=== PATIENT | female | born 1940 | race Caucasian/White ===

== ENCOUNTER → 2016-11-16 | Outpatient (REF) | payer OTHER ==
[2016-11-16 20:10] LABS: ALBUMIN/GLOBULIN RATIO 1.38 (1.00-1.93); BILIRUBIN,TOTAL 0.4 MG/DL (0.2-1.0); CALCIUM LEVEL 9.4 MG/DL (8.8-10.2); CREATININE FOR GFR 1.21 MG/DL (0.55-1.02); FREE T4 1.08 NG/DL (0.76-1.46); GLOMERULAR FILTRATION RATE 46.1 (>39); MAGNESIUM LEVEL 1.8 MG/DL (1.8-2.4); POTASSIUM SERUM 3.4 MEQ/L (3.5-5.1); TOTAL PROTEIN 6.9 GM/DL (6.4-8.2)
== END ==
LOC: M SFHCADAM 16:24
PROVIDERS: ATTEND Physician Assistant
DX: I10 Essential (primary) hypertension (principal); E03.9 Hypothyroidism, unspecified; E78.4 Other hyperlipidemia; Z79.899 Other long term (current) drug therapy
CPT/HCPCS: 80053; 80061; 82306; 83735; 84439; 84443; 93005; G0463

== ENCOUNTER → 2017-02-22 | Outpatient (REF) | payer OTHER ==
[2017-02-22 13:11] LABS: ANION GAP 9 MEQ/L (8-16); BLOOD UREA NITROGEN 15 MG/DL (7-18); CALCIUM LEVEL 9.7 MG/DL (8.8-10.2); CARBON DIOXIDE LEVEL 31 MEQ/L (21-32); CHLORIDE LEVEL 99 MEQ/L (98-107); CREATININE FOR GFR 0.89 MG/DL (0.55-1.02); GLOMERULAR FILTRATION RATE > 60.0 (>39); GLUCOSE, FASTING 95 MG/DL (83-110); POTASSIUM SERUM 3.2 MEQ/L (3.5-5.1); SODIUM LEVEL 139 MEQ/L (136-145)
== END ==
LOC: M SFHCADAM 08:56
PROVIDERS: ATTEND Physician Assistant
DX: I12.9 Hypertensive chronic kidney disease with stage 1 through stage 4 chronic kidney disease, or unspecified chronic kidney disease (principal); N18.2 Chronic kidney disease, stage 2 (mild)

== ENCOUNTER → 2017-05-30 | Outpatient (CLI) | payer OTHER ==
[~2017-05-30] MED LIST: CHLO25TA PO; K-TA10TA2 PO; SYNT75TA PO; VALI5TAB PO; VERAP80TA PO
--- NOTE | 2017-05-30 13:47 | REP ---
Clinical: Preoperative assessment. Technique: PA and lateral. Comparison: None. Findings: Cardiac silhouette is normal. Atherosclerotic changes to the thoracic aorta are identified. The airway is patent and midline. Lung connors demonstrate diffuse chronic-appearing interstitial changes. No obvious acute consolidation, effusion, or pneumothorax. Skeletal structures are intact. Impression: Chronic-appearing changes. No obvious acute cardiopulmonary process. Signed by Logan Leggett MD 05/30/2017 01:38 P
== END ==
LOC: M ADAMS 13:19
PROVIDERS: ATTEND Physician Assistant
DX: I70.0 Atherosclerosis of aorta (principal); R05 Cough
CPT/HCPCS: 71020; G0463

== ENCOUNTER 2017-06-07 06:20 | Day surgery (SDC) | payer OTHER ==
[~2017-06-07] VITALS: Ht 160 cm; Wt 68.5 kg
[~2017-06-07 06:20] MED LIST changes: +ACETAMINOPHEN 325 MG TAB PO PRN
[2017-06-07] MEDS ORDERED: LIDOCAINE 1% MDV 20ML VIAL SQ PRN (06:30)
[2017-06-07] MEDS ORDERED: SLF 3 ML SYR IV PRN (06:30)
[2017-06-07] MEDS ORDERED: LIDOCAINE 3.5 % 1ML OPHTH TOPICAL GEL OU ONE (07:00)
[2017-06-07] MEDS ORDERED: PHENYLEPHRINE 2.5% OPHTH SOL 2ML OD ONE (07:00)
[2017-06-07] MEDS ORDERED: CYCLOPENTOLATE 2% OPHTH SOLN 2ML BTL OD ONE (07:00)
[2017-06-07] MEDS ORDERED: TROPICAMIDE 1% OPHTH SOLN 2ML OD ONE (07:00)
[2017-06-07] MEDS ORDERED: OFLOXACIN 0.3 % (OCUFLOX) OPTH SOL 5ML OD ONE (07:00)
[2017-06-07] MEDS ORDERED: PROPARACAINE 0.5% OPHTH SOL 15ML OD PRN (07:01)
[2017-06-07] MEDS ORDERED: POVIDONE-IODINE 5% OPHTH PREP SOL 30ML As Ordered ONE (07:10)
[2017-06-07] MEDS ORDERED: ACETYLCHOLINE OPHTH SOLN 1% 2ML (MIOCHOL-E) As Ordered ONE (07:10)
[2017-06-07] MEDS ORDERED: LIDOCAINE 1% SDV 5 ML VIAL As Ordered ONE (07:11)
[2017-06-07] MEDS ORDERED: HEALON DUET (HEALON 10MG/ML 0.55ML & HEALON ENDOCOAT 30MG/ML 0.85ML) As Ordered ONE (07:11)
[2017-06-07] MEDS ORDERED: CEFUROXIME 1MG/0.1ML INTRACAMERAL INJ As Ordered ONE (07:11)
[2017-06-07] MEDS ORDERED: BALANCED SALT IRRIGATION SOLUTION 500ML BAG (FOR OR EYE MACHINE) As Ordered ONE (07:13)
[2017-06-07] MEDS ORDERED: MIDAZOLAM INJ 2 MG/2 ML VIAL (J2250) As Ordered ONE (08:34)
[2017-06-07] MEDS ORDERED: fentaNYL 100 MCG/2 ML INJECTION (J3010) As Ordered ONE (08:34)
[2017-06-07] MEDS ORDERED: TRIMETHOBENZAMIDE 300 MG CAP PO PRN (09:00)
[2017-06-07] MEDS ORDERED: KETOROLAC 0.5% OPHTH SOLN OD ONE (09:00)
[2017-06-07 09:30] VITALS: BP 142/62
--- NOTE | 2017-06-07 10:36 | RO ---
DATE OF PROCEDURE: 06/07/2017 PREPROCEDURE DIAGNOSIS: Age related nuclear cataract right eye. POSTPROCEDURE DIAGNOSIS: Age related nuclear cataract right eye. PROCEDURE: Phacoemulsification and posterior chamber intraocular lens implantation, right eye. The lens used was U00T0 19.5 diopter. SURGEON: Elis Meek MD [facility] CHAPLAIN: ANESTHESIA: Topical with sedation. DESCRIPTION OF PROCEDURE: The patient was prepped and draped in the usual fashion. A lid speculum was placed between the lids. The eye was fixated. A stab incision was made to the anterior chamber, and 1% non-preserved lidocaine was instilled. Then, viscoelastic was instilled. The eye was re-fixated. A 2.75 mm sapphire keratome was used to make a clear corneal temporal limbal incision. Capsulorrhexis was begun with a 30-gauge bent needle and then carried out in a circular fashion with capsulorrhexis forceps. The lens was hydrodissected, and then the phacoemulsification unit was used to make a groove in the nucleus in two meridians. The nucleus was then cracked into four quadrants. Each quadrant was removed with the phacoemulsification unit. Any remaining cortex was removed with the irrigation and aspiration (I and A) unit. Capsular bag was refilled with viscoelastic. A posterior chamber intraocular lens was placed in the capsular bag without difficulty. Any remaining viscoelastic was removed with the I and A unit. The wound was hydrated, and Miochol and cefuroxime were instilled into the anterior chamber. The patient tolerated the procedure well and went to the recovery room in stable condition.
[2017-06-07] MEDS ORDERED: SLF 3 ML SYR IV SCH (14:00)
== END 2017-06-07 09:40 | disposition home or self-care (01) ==
LOC: M SDC 06:20
PROVIDERS: ATTEND Ophthalmology
DX: H25.11 Age-related nuclear cataract, right eye (principal); Z88.2 Allergy status to sulfonamides; I10 Essential (primary) hypertension; E03.9 Hypothyroidism, unspecified; G25.81 Restless legs syndrome; Z88.8 Allergy status to other drugs, medicaments and biological substances
CPT/HCPCS: 66984; J2250; J3010; V2632

== ENCOUNTER → 2017-06-28 | Day surgery (SDC) | payer OTHER ==
[~2017-06-28] VITALS: Ht 162.6 cm; Wt 68.9 kg
[~2017-06-28] MED LIST changes: +ACETYLCHOLINE OPHTH SOLN 1% 2ML (MIOCHOL-E) As Ordered ONE; +BALANCED SALT IRRIGATION SOLUTION 500ML BAG (FOR OR EYE MACHINE) As Ordered ONE; +CEFUROXIME 1MG/0.1ML INTRACAMERAL INJ As Ordered ONE; +CYCLOPENTOLATE 2% OPHTH SOLN 2ML BTL OS ONE; +HEALON DUET (HEALON 10MG/ML 0.55ML & HEALON ENDOCOAT 30MG/ML 0.85ML) As Ordered ONE; +KETOROLAC 0.5% OPHTH SOLN OS ONE; +LIDOCAINE 1% SDV 5 ML VIAL As Ordered ONE; +LIDOCAINE 1% SDV 5 ML VIAL SQ ONE; +LIDOCAINE 3.5 % 1ML OPHTH TOPICAL GEL OU ONE; +MIDAZOLAM INJ 2 MG/2 ML VIAL (J2250) As Ordered ONE; +OFLOXACIN 0.3 % (OCUFLOX) OPTH SOL 5ML OS ONE; +PHENYLEPHRINE 2.5% OPHTH SOL 2ML OS ONE; +PHENYLEPHRINE HCL 10 % OPHTH. SOL 5ML OS PRN; +POVIDONE-IODINE 5% OPHTH PREP SOL 30ML As Ordered ONE; +PROPARACAINE 0.5% OPHTH SOL 15ML OS PRN; +TRIMETHOBENZAMIDE 300 MG CAP PO PRN; +TROPICAMIDE 1% OPHTH SOLN 2ML OS ONE; +fentaNYL 100 MCG/2 ML INJECTION (J3010) As Ordered ONE
[2017-06-28 10:40] VITALS: BP 179/74
--- NOTE | 2017-06-30 12:20 | RO ---
DATE OF PROCEDURE: 06/28/2017 PREPROCEDURE DIAGNOSIS: Age-related nuclear cataract, left eye. POSTPROCEDURE DIAGNOSIS: Age-related nuclear cataract, left eye. PROCEDURE: Phacoemulsification and posterior chamber intraocular lens implantation, left eye. The lens used was AU00T0, 19.5 diopter. SURGEON: Elis Meek MD FORMS EXAMINER: ANESTHESIA: Topical with sedation. DESCRIPTION OF PROCEDURE: The patient was prepped and draped in the usual fashion. A lid speculum was placed between the lids. The eye was fixated. A stab incision was made to the anterior chamber, and 1% non-preserved lidocaine was instilled. Then, viscoelastic was instilled. The eye was re-fixated. A 2.75 mm sapphire keratome was used to make a clear corneal temporal limbal incision. Capsulorrhexis was begun with a 30-gauge bent needle and then carried out in a circular fashion with capsulorrhexis forceps. The lens was hydrodissected, and then the phacoemulsification unit was used to make a groove in the nucleus in two meridians. The nucleus was then cracked into four quadrants. Each quadrant was removed with the phacoemulsification unit. Any remaining cortex was removed with the irrigation and aspiration (I and A) unit. Capsular bag was refilled with viscoelastic. A posterior chamber intraocular lens was placed in the capsular bag without difficulty. Any remaining viscoelastic was removed with the I and A unit. The wound was hydrated, and Miochol and cefuroxime were instilled into the anterior chamber. The patient tolerated the procedure well and went to the recovery room in stable condition.
== END | disposition home or self-care (01) ==
LOC: M SDC 08:26
PROVIDERS: ATTEND Ophthalmology
DX: H25.12 Age-related nuclear cataract, left eye (principal); I10 Essential (primary) hypertension; E03.9 Hypothyroidism, unspecified; M19.90 Unspecified osteoarthritis, unspecified site; G25.81 Restless legs syndrome; F41.9 Anxiety disorder, unspecified; Z87.891 Personal history of nicotine dependence; Z79.899 Other long term (current) drug therapy; Z88.2 Allergy status to sulfonamides; Z88.6 Allergy status to analgesic agent
CPT/HCPCS: 66984; J2250; J3010; V2632

== ENCOUNTER → 2017-09-26 | Outpatient (REF) | payer OTHER ==
[2017-09-26 11:39] LABS: HEMATOCRIT 43.6 % (36.0-47.0); HEMOGLOBIN 14.3 g/dl (12.0-16.0); MEAN CORPUSCULAR HEMOGLOBIN 29.9 pg (27.0-33.0); MEAN CORPUSCULAR HGB CONC 32.8 g/dl (32.0-36.5); PLATELET COUNT, AUTOMATED 308 10^3/uL (150-450); RED BLOOD COUNT 4.79 10^6/uL (4.00-5.40); RED CELL DISTRIBUTION WIDTH 13.3 % (11.5-14.5); WHITE BLOOD COUNT 7.3 10^3/uL (4.0-10.0)
[2017-09-26 11:59] LABS: ALBUMIN 3.6 GM/DL (3.2-5.2); ALBUMIN/GLOBULIN RATIO 1.16 (1.00-1.93); ALKALINE PHOSPHATASE 218 U/L (45-117); ALT/SGPT 18 U/L (12-78); ANION GAP 9 MEQ/L (8-16); AST/SGOT 12 U/L (7-37); BILIRUBIN,TOTAL 0.4 MG/DL (0.2-1.0); BLOOD UREA NITROGEN 18 MG/DL (7-18); CALCIUM LEVEL 9.2 MG/DL (8.8-10.2); CARBON DIOXIDE LEVEL 29 MEQ/L (21-32); CHLORIDE LEVEL 101 MEQ/L (98-107); CREATININE FOR GFR 1.07 MG/DL (0.55-1.30); GLOMERULAR FILTRATION RATE 52.9 (>39); GLUCOSE, FASTING 103 MG/DL (70-100); POTASSIUM SERUM 3.7 MEQ/L (3.5-5.1); SODIUM LEVEL 139 MEQ/L (136-145); TOTAL PROTEIN 6.7 GM/DL (6.4-8.2)
== END ==
LOC: M SFHCADAM 08:47
DX: N18.2 Chronic kidney disease, stage 2 (mild) (principal); I12.9 Hypertensive chronic kidney disease with stage 1 through stage 4 chronic kidney disease, or unspecified chronic kidney disease
CPT/HCPCS: 80053

== ENCOUNTER → 2018-11-08 | Outpatient (REF) | payer OTHER ==
[~2018-11-08] MED LIST changes: -ACETAMINOPHEN 325 MG TAB PO PRN; -ACETYLCHOLINE OPHTH SOLN 1% 2ML (MIOCHOL-E) As Ordered ONE; -BALANCED SALT IRRIGATION SOLUTION 500ML BAG (FOR OR EYE MACHINE) As Ordered ONE; -CEFUROXIME 1MG/0.1ML INTRACAMERAL INJ As Ordered ONE; -CYCLOPENTOLATE 2% OPHTH SOLN 2ML BTL OS ONE; -HEALON DUET (HEALON 10MG/ML 0.55ML & HEALON ENDOCOAT 30MG/ML 0.85ML) As Ordered ONE; -KETOROLAC 0.5% OPHTH SOLN OS ONE; -LIDOCAINE 1% SDV 5 ML VIAL As Ordered ONE; -LIDOCAINE 1% SDV 5 ML VIAL SQ ONE; -LIDOCAINE 3.5 % 1ML OPHTH TOPICAL GEL OU ONE; -MIDAZOLAM INJ 2 MG/2 ML VIAL (J2250) As Ordered ONE; -OFLOXACIN 0.3 % (OCUFLOX) OPTH SOL 5ML OS ONE; -PHENYLEPHRINE 2.5% OPHTH SOL 2ML OS ONE; -PHENYLEPHRINE HCL 10 % OPHTH. SOL 5ML OS PRN; -POVIDONE-IODINE 5% OPHTH PREP SOL 30ML As Ordered ONE; -PROPARACAINE 0.5% OPHTH SOL 15ML OS PRN; -TRIMETHOBENZAMIDE 300 MG CAP PO PRN; -TROPICAMIDE 1% OPHTH SOLN 2ML OS ONE; -fentaNYL 100 MCG/2 ML INJECTION (J3010) As Ordered ONE
[2018-11-08 19:03] LABS: HEMATOCRIT 45.1 % (36.0-47.0); HEMOGLOBIN 14.7 g/dl (12.0-15.5); MEAN CORPUSCULAR HEMOGLOBIN 29.9 pg (27.0-33.0); MEAN CORPUSCULAR HGB CONC 32.6 g/dl (32.0-36.5); MEAN CORPUSCULAR VOLUME 91.9 fl (80.0-96.0); PLATELET COUNT, AUTOMATED 224 10^3/uL (150-450); RED BLOOD COUNT 4.91 10^6/uL (4.00-5.40); WHITE BLOOD COUNT 7.2 10^3/uL (4.0-10.0)
[2018-11-08 19:10] LABS: ALBUMIN 3.8 GM/DL (3.2-5.2); BILIRUBIN,TOTAL 0.4 MG/DL (0.2-1.0); CALCIUM LEVEL 9.2 MG/DL (8.8-10.2); CHOLESTEROL RISK RATIO 3.597 (<5); CREATININE FOR GFR 0.96 MG/DL (0.55-1.30); FREE T4 1.22 NG/DL (0.76-1.46); GLOMERULAR FILTRATION RATE 59.8 (>39); POTASSIUM SERUM 3.9 MEQ/L (3.5-5.1); THYROID STIMULATING HORMONE 0.709 uIU/ML (0.358-3.740); TOTAL PROTEIN 7.1 GM/DL (6.4-8.2)
== END ==
LOC: M SFHCADAM 11:58
PROVIDERS: ATTEND Physician Assistant
DX: N18.2 Chronic kidney disease, stage 2 (mild) (principal); E03.9 Hypothyroidism, unspecified; E78.49 Other hyperlipidemia

== ENCOUNTER 2019-08-25 16:53 | Inpatient (IN) | payer MEDICARE, OTHER ==
[~2019-08-25] VITALS: Ht 162.6 cm; Wt 65.0 kg
[2019-08-25] VITALS (18 sets, daily range): BP systolic 166–228; BP diastolic 74–141
[~2019-08-25 16:53] MED LIST changes: -ALBU8.5H INH; -CHLO125TA PO; -DIAZ5TAB PO; -LEVO250T12 PO; -POLYOPD OU; -POTA10CA32 PO; -PRED10TA2 PO
[2019-08-25] MEDS ORDERED: CHLO125TA PO (17:05)
[2019-08-25] MEDS ORDERED: DIAZ5TAB PO (17:05)
[2019-08-25] MEDS ORDERED: PRED10TA2 PO (17:05)
[2019-08-25] MEDS ORDERED: POTA10CA32 PO (17:05)
[2019-08-25] MEDS ORDERED: LEVO250T12 PO (17:05)
[2019-08-25] MEDS ORDERED: ALBU8.5H INH (17:05)
[2019-08-25 17:45] LABS: BASO # 0.1 10^3/uL (0.0-0.2); BASO % 0.4 % (0.0-1.0); EOS % 0.1 % (0.0-3.0); HEMATOCRIT 45.6 % (36.0-47.0); HEMOGLOBIN 15.2 g/dl (12.0-15.5); LYMPH # 0.8 10^3/uL (1.5-5.0); LYMPH % 6.5 % (24.0-44.0); MEAN CORPUSCULAR HEMOGLOBIN 29.7 pg (27.0-33.0); MEAN CORPUSCULAR HGB CONC 33.3 g/dl (32.0-36.5); MEAN CORPUSCULAR VOLUME 89.2 fl (80.0-96.0); MONO # 0.4 10^3/uL (0.0-0.8); MONO % 3.4 % (0.0-5.0); NEUTROPHILS # 10.9 10^3/uL (1.5-8.5); NEUTROPHILS % 89.2 % (36.0-66.0); PLATELET COUNT, AUTOMATED 287 10^3/uL (150-450); RED BLOOD COUNT 5.11 10^6/uL (4.00-5.40); WHITE BLOOD COUNT 12.2 10^3/uL (4.0-10.0)
[2019-08-25] MEDS ORDERED: diazePAM 5 MG TAB As Ordered ONE (17:56)
[2019-08-25] MEDS ORDERED: VERAPAMIL 80 MG TAB PO ONE (18:00)
[2019-08-25] MEDS ORDERED: diazePAM 5 MG TAB PO ONE (18:00)
[2019-08-25 18:21] LABS: ALBUMIN 3.6 GM/DL (3.2-5.2); ALT/SGPT 25 U/L (12-78); BILIRUBIN,DIRECT 0.1 MG/DL (0.0-0.2); BILIRUBIN,TOTAL 0.4 MG/DL (0.2-1.0); BLOOD UREA NITROGEN 14 MG/DL (7-18); CALCIUM LEVEL 10.1 MG/DL (8.8-10.2); CARBON DIOXIDE LEVEL 29 MEQ/L (21-32); CHLORIDE LEVEL 97 MEQ/L (98-107); CREATININE FOR GFR 0.85 MG/DL (0.55-1.30); GLOMERULAR FILTRATION RATE > 60.0 (>39); GLUCOSE, FASTING 134 MG/DL (70-100); NT-PRO BNP 237 PG/ML (<450); POTASSIUM SERUM 3.1 MEQ/L (3.5-5.1); SODIUM LEVEL 135 MEQ/L (136-145); THYROID STIMULATING HORMONE 0.368 uIU/ML (0.358-3.740); TOTAL PROTEIN 6.8 GM/DL (6.4-8.2)
[2019-08-25] MEDS ORDERED: POLYOPD OU (18:54)
--- NOTE | 2019-08-25 18:58 | REPVR ---
PROCEDURE INFORMATION: Exam: CT Chest Without Contrast Exam date and time: 08/25/2019 5:35 PM Age: 79 years old Clinical indication: Abnormal findings; Abnormal radiologic exam of lung or chest; Additional info: Further evaluate right pleural effusion TECHNIQUE: Imaging protocol: Computed tomography of the chest without contrast. 3D rendering: MIP and/or 3D reconstructed images were created by the technologist. Radiation optimization: All CT scans at this facility use at least one of these dose optimization techniques: automated exposure control; mA and/or kV adjustment per patient size (includes targeted exams where dose is matched to clinical indication); or iterative reconstruction. COMPARISON: DX CHEST 2 VIEW 08/25/2019 2:34 PM FINDINGS: Lungs: Consolidation is visualized within the right lower lobe, suggestive of atelectatic change or pneumonia. Centrilobular emphysematous changes are identified bilaterally. Mild increased reticular markings are identified within the left upper lobe of the lung on series 202, image 43. Multiple pleural-based and perifissural nodules are identified. On series 202, image 61, a a perifissural nodule measures 1.0 cm. Pleural space: Large right pleural effusion. Heart: Coronary artery calcification. Small pericardial effusion. No cardiomegaly. Aorta: No aortic aneurysm. Atherosclerosis of the thoracic aorta and great vessels. Lymph nodes: Several right pericardial lymph nodes or nodules are identified. One of these measures 1.1 x 0.5 cm. These findings may be inflammatory, although malignancy is also within the differential. Evaluation for hilar lymph nodes is limited by the absence of intravenous contrast. A small precarinal mediastinal lymph node is visualized. Liver: Within the right hepatic lobe anteriorly, there is a 1.0 x 0.7 cm hypodense lesion. Additional hypodense lesion is visualized within the right hepatic lobe more inferiorly measuring 1.5 x 1.5 cm. These findings are incompletely evaluated without intravenous contrast, but is suggestive of cysts or hemangiomas. There is mild lobulation of the hepatic dome. Adrenals: There is thickening of the right adrenal gland. A left adrenal nodule is visualized, which is predominantly isodense. There is a small calcification and a few foci of hypodensity visualized within this nodule. Kidneys and ureters: A calcification or nonobstructing calculus is identified within the left kidney. Bones/joints: Mild levoscoliosis of the thoracic spine with increased kyphosis. Hypertrophic degenerative changes are noted within the spine. Soft tissues: Unremarkable. IMPRESSION: 1. Large right pleural effusion. 2. Consolidation is visualized within the right lower lobe, suggestive of atelectatic change or pneumonia. 3. Multiple pleural-based and perifissural nodules are identified. When small nodules have a perifissural or other juxtapleural location and a morphology consistent with an intrapulmonary lymph node, follow-up CT is not recommended, even if the average dimension exceeds 6 mm. Denis Jay, Fleischner Society, 2017.) 4. Centrilobular emphysematous changes are identified bilaterally. Mild increased reticular markings are identified within the left upper lobe of the lung. 5. Small pericardial effusion. 6. Several right pericardial lymph nodes or nodules are identified. These findings may be inflammatory, although malignancy is also within the differential. 7. Within the right hepatic lobe anteriorly, there is a 1.0 x 0.7 cm hypodense lesion. Additional hypodense lesion is visualized within the right hepatic lobe more inferiorly measuring 1.5 x 1.5 cm. These findings are incompletely evaluated without intravenous contrast, but is suggestive of cysts or hemangiomas. 8. A left adrenal nodule is visualized, which is predominantly isodense. There is a small calcification and a few foci of hypodensity visualized within this nodule. A follow-up MRI of the abdomen with/without contrast is recommended. 9. Additional findings described above. Electronically signed by: Gamaliel Mendoza On 08/25/2019 18:57:55 PM
[2019-08-25] MEDS ORDERED: ALBUTEROL SULFATE 2.5 MG/0.5 ML INH NEB SOLN INH PRN (19:45)
[2019-08-25] MEDS ORDERED: CAPTOpril 6.25 MG PER 1/2 TABLET PO ONE (19:45)
[2019-08-25] MEDS ORDERED: POLYVINYL ALCOHOL OPHTH SOLN 15 ML(LIQUITEARS) OU PRN (19:45)
[2019-08-25] MEDS: IPRATROPIUM 0.5MG/ALBUTEROL 2.5MG INH SOL UD 3ML (DUONEB)(J7620) NEB SCH ×2 (20:00→23:42)
[2019-08-25] MEDS ORDERED: KCL 20MEQ IN D5/NS 1000ML 1,000 ML IV SCH (20:01)
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
[2019-08-25] MEDS: predniSONE 10 MG TAB PO SCH (20:07)
[2019-08-25] MEDS: HEPARIN SOD (PORCINE) 5000 UNITS/ML VIAL (J1644 PER 1000UNITS) SC SCH (20:08)
[2019-08-25] MEDS ORDERED: BISACODYL 10 MG SUPP PR PRN (20:15)
[2019-08-25] MEDS ORDERED: ONDANSETRON 4MG/2ML VIAL (J2405) IV PRN (20:15)
[2019-08-25] MEDS ORDERED: PERCOCET 5MG/325MG TAB PO PRN ×2 (20:15)
[2019-08-25] MEDS ORDERED: ACETAMINOPHEN TAB 650MG DOSE (2X325MG) PO PRN (20:15)
[2019-08-25] MEDS ORDERED: LEVALBUTEROL 1.25 MG/0.5 ML CONCENTRATE NEB NEB PRN (20:15)
[2019-08-25] MEDS ORDERED: MIDAZOLAM INJ 2 MG/2 ML VIAL (J2250) As Ordered ONE ×2 (20:48→20:49)
[2019-08-25] MEDS ORDERED: LIDOCAINE 1% MDV 20ML VIAL As Ordered ONE ×2 (20:49→21:00)
[2019-08-25] MEDS ORDERED: flumazeniL 0.5 MG/5 ML VIAL As Ordered ONE (20:50)
[2019-08-25] MEDS: DOCUSATE SODIUM 100 MG CAP PO SCH (21:00)
[2019-08-25 22:30] LABS: APPEARANCE, BODY FLUID HAZY (CLEAR); PLEURAL FL COLOR YELLOW (COLORLESS); SOURCE, BODY FLUID PLEURAL
[2019-08-25 22:44] LABS: LDH LACTATE DEHYDROGENASE 265 U/L (84-246)
[2019-08-25] MEDS ORDERED: MIDAZOLAM INJ 2 MG/2 ML VIAL (J2250) IV ONE ×2 (22:45)
[2019-08-25] MEDS ORDERED: LIDOCAINE 1% MDV 20ML VIAL SC ONE (22:45)
[2019-08-25 22:49] LABS: PH BODY FLUID 7.589 UNITS (NOT ESTABLISHED); SOURCE, BODY FLUID pH PLEURAL
[2019-08-26] VITALS (15 sets, daily range): BP systolic 120–201; BP diastolic 62–98; O2SAT 97
[2019-08-26] MEDS ORDERED: LEVALBUTEROL 1.25 MG/0.5 ML CONCENTRATE NEB NEB SCH (02:00)
[2019-08-26] MEDS ORDERED: CAPTOpril 6.25 MG PER 1/2 TABLET PO ONE (02:30)
[2019-08-26] MEDS: IPRATROPIUM 0.5MG/ALBUTEROL 2.5MG INH SOL UD 3ML (DUONEB)(J7620) NEB SCH ×6 (04:00→23:16)
[2019-08-26 04:28] LABS: BASO % 0.2 % (0.0-1.0); HEMATOCRIT 41.9 % (36.0-47.0); HEMOGLOBIN 14.2 g/dl (12.0-15.5); LYMPH # 0.8 10^3/uL (1.5-5.0); LYMPH % 8.8 % (24.0-44.0); MEAN CORPUSCULAR HEMOGLOBIN 30.3 pg (27.0-33.0); MEAN CORPUSCULAR HGB CONC 33.9 g/dl (32.0-36.5); MEAN CORPUSCULAR VOLUME 89.5 fl (80.0-96.0); MONO # 0.6 10^3/uL (0.0-0.8); MONO % 6.4 % (0.0-5.0); NEUTROPHILS # 7.8 10^3/uL (1.5-8.5); NEUTROPHILS % 84.4 % (36.0-66.0); PLATELET COUNT, AUTOMATED 297 10^3/uL (150-450); RED BLOOD COUNT 4.68 10^6/uL (4.00-5.40); WHITE BLOOD COUNT 9.2 10^3/uL (4.0-10.0)
[2019-08-26 04:46] LABS: BLOOD UREA NITROGEN 11 MG/DL (7-18); CALCIUM LEVEL 8.6 MG/DL (8.8-10.2); CARBON DIOXIDE LEVEL 30 MEQ/L (21-32); CHLORIDE LEVEL 100 MEQ/L (98-107); CREATININE FOR GFR 0.75 MG/DL (0.55-1.30); GLOMERULAR FILTRATION RATE > 60.0 (>39); GLUCOSE, FASTING 131 MG/DL (70-100); MAGNESIUM LEVEL 1.6 MG/DL (1.8-2.4); POTASSIUM SERUM 3.5 MEQ/L (3.5-5.1); SODIUM LEVEL 137 MEQ/L (136-145)
[2019-08-26] MEDS ORDERED: MAG SULF 1GM/100ML (MAG RUN) 1 GM in IV 1 EA IV ONE (05:15)
[2019-08-26] MEDS: LEVOTHYROXINE 75MCG TABLET (0.075MG) PO SCH (05:16)
[2019-08-26] MEDS: hydrALAZINE INJ 20 MG/ML VIAL IV PRN ×2 (06:14→18:26)
--- NOTE | 2019-08-26 06:42 | RO ---
DATE OF PROCEDURE: 08/25/2019 PREPROCEDURE DIAGNOSIS: Right pleural effusion. POSTPROCEDURE DIAGNOSIS: Right pleurale effusion. PROCEDURE: Insertion of right lateral chest tube. SURGEON: Tejinder Shetty MD FORECLOSURE SPECIALIST: ANESTHESIA: DESCRIPTION OF PROCEDURE: Under satisfactory moderate sedation achieved with 2 mg of Versed, the patient was prepped and draped in the usual sterile fashion. Skin and subcutaneous tissue, intercostal muscle and pleura was infiltrated with 1% lidocaine. Incision was made and a tunnel was created into the chest at about the approximate sixth intercostal space. A #20 chest tube was placed without difficulty and drained 2000 mL of eda fluid. Fluid was sent for requisite cytologies, bacteriologies, chemistries and hematologies. Chest tube was secured to the chest wall with #2 Tevdek suture. Patient tolerated the procedure well and a chest x-ray is pending.
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
--- NOTE | 2019-08-26 08:15 | REP ---
Clinical: Chest tube placement . Comparison: 08/25/2019 . Findings: Chest tube at the right base is noted and there is considerably decreased right pleural effusion with improved aeration. Minimal underline atelectasis and small residual pleural effusion suggested. No obvious pneumothorax. Left hemithorax is stable. Cardiac silhouette and mediastinum appear grossly normal. Impression: Right chest tube with significantly decreased pleural effusion and improved aeration. Electronically Signed by Logan Leggett MD 08/26/2019 08:06 A
[2019-08-26] MEDS: MOM 30ML SUSPENSION UDC PO SCH (09:00)
--- NOTE | 2019-08-26 09:06 | REP ---
Clinical: Pleural effusion. Technique: PA and lateral. Comparison: 08/25/2019. Findings: Chest tube extending to the posterior right base remain stable. In comparison with most recent prior examination dated 08/25/2019 at 09:26 p.m., there is increased right lower lobe opacities suggesting elements of atelectasis and small residual pleural effusion. No obvious pneumothorax. Subtle left lower lobe atelectasis is suggested. Mediastinum and cardiac silhouette are normal. Skeletal structures are intact. Impression: 1. Mildly increased opacities at the right base suggested. 2. Subtle new left lower lobe atelectasis. Electronically Signed by Logan Leggett MD 08/26/2019 08:57 A
[2019-08-26] MEDS: NORCO, ANEXSIA 5/325MG TABLET (HYDROcodone/ACETAMINOPHEN) PO PRN ×3 (09:15→20:25)
[2019-08-26] MEDS: VERAPAMIL 80 MG TAB PO SCH ×2 (09:15→20:24)
[2019-08-26] MEDS: predniSONE 10 MG TAB PO SCH ×3 (09:15→20:24)
[2019-08-26] MEDS: LevoFLOXacin 250 MG TABLET PO SCH (09:16)
[2019-08-26] MEDS: PANTOPRAZOLE 40MG TAB (PROTONIX) PO SCH (09:16)
[2019-08-26] MEDS: DOCUSATE SODIUM 100 MG CAP PO SCH ×2 (09:16→20:24)
[2019-08-26] MEDS: HEPARIN SOD (PORCINE) 5000 UNITS/ML VIAL (J1644 PER 1000UNITS) SC SCH ×2 (09:16→20:25)
[2019-08-26] MEDS: CHLORTHALIDONE 25 MG TAB PO SCH (09:16)
--- NOTE | 2019-08-26 09:54 | IPNPDOC ---
Subjective Date Seen The patient was seen on 08/26/19. Subjective Chief Complaint/HPI Callie this morning states that she is feeling a lot better. She feels much less SOB. Her only complaint is that she has some tenderness at the site of the chest tube. She has family at bedside. General: Denies: Fatigue Constitutional: Denies: Chills, Fever ENT: Denies: Head Aches Pulmonary: Reports: Dyspnea; Denies: Cough Cardiovascular: Denies: Chest Pain, Palpitations Gastrointestinal: Denies: Nausea, Vomiting, Diarrhea Neurological: Denies: Weakness Psych: Reports: Mood Normal Objective Physical Examination General Exam: Positive: Alert, Cooperative Eye Exam: Positive: PERRLA ENT Exam: Positive: Atraumatic Neck Exam: Positive: Supple; Negative: JVD Chest Exam: Negative: Diminished (slightly diminished throughout with crackles at the right base) Heart Exam: Positive: Rate Normal, Normal S1, Normal S2 Telemetry: Positive: No significant arrhythmia Abdomen Exam: Positive: Normal bowel sounds, Soft; Negative: Tenderness Extremity Exam: Negative: Clubbing, Cyanosis, Edema Skin Exam: Positive: Nl turgor and temperature Psych Exam: Positive: Mental status NL Assessment /Plan Problems (1) Pleural effusion, right Status: Acute Response to Treatment: Stable Discussed With: Nurse, Patient, Family with Pt Consent Problem Specific Plan: Consult Specialist, Monitor Clinically, Repeat Labs Problem Text: Dr Shetty has place and is managing CT, pathology pending, CXR this AM shows improvement in effusion, will need CT chest with contrast, renal function will should support this later today. This will provide additional in formation regarding her pleural nodules and pericardial lymph nodes. (2) Hypertensive urgency Status: Acute Problem Text: She has verapamil and chlorthalidone ordered, pressures have come down some since admission, also has PRN hydralazine available, cont to monitor pressures. (3) Pleural nodules Problem Specific Plan: Consult Specialist (ee) Problem Text: See above. (4) Hypothyroidism Status: Chronic Response to Treatment: Stable Problem Specific Plan: Monitor Clinically Problem Text: Cont with levothyroxine 75 mcg po daily. (5) Adrenal adenoma Problem Text: Noted on CT without contrast on admission, for more complete evaluation pt would need MRI with and without contrast. I will hold off on this as the Chest CT with contrast will need to be done today. She also will needs liver US, which I will order for tomorrow morning. Plan/VTE VTE Prophylaxis Ordered?: Yes VS, I&O, 24H, Fishbone Vital Signs/I&O Vital Signs Date Time Temp Pulse Resp B/P (MAP) Pulse Ox O2 Delivery O2 Flow Rate FiO2 08/26/19 09:15 113 28 168/74 92 Room Air 08/26/19 07:21 2.0 08/26/19 04:30 97.6 I&O- Last 24 Hours up to 6 AM 08/26/19 06:00 Intake Total 995 ml Output Total 2880 ml Balance -1885 ml Laboratory Data 24H LABS Laboratory Tests 2 08/25/19 17:31: Immature Granulocyte % (Auto) 0.4, Neutrophils (%) (Auto) 89.2H, Lymphocytes (%) (Auto) 6.5L, Monocytes (%) (Auto) 3.4, Eosinophils (%) (Auto) 0.1, Basophils (%) (Auto) 0.4, Neutrophils # (Auto) 10.9H, Lymphocytes # (Auto) 0.8L, Monocytes # (Auto) 0.4, Eosinophils # (Auto) 0.0, Basophils # (Auto) 0.1, Nucleated Red Blood Cells % (auto) 0.0, Anion Gap 9, Glomerular Filtration Rate > 60.0, Calcium Level 10.1, Total Bilirubin 0.4, Direct Bilirubin 0.1, Aspartate Amino Transf (AST/SGOT) 23, Alanine Aminotransferase (ALT/SGPT) 25, Alkaline Phosphatase 174H, Lactate Dehydrogenase 265H, WX-Mxi-W-Type Natriuretic Peptide 237, Total Protein 6.8, Albumin 3.6, Albumin/Globulin Ratio 1.13, Thyroid Stimulating Hormone (TSH) 0.368 08/25/19 20:29: D-Dimer, Quantitative 4000.00H, Lactic Acid Level 1.4 08/25/19 22:03: Body Fluid pH 7.589, Body Fluid pH Source PLEURAL, Body Fluid WBC (Auto) 732H, Body Fluid RBC (Auto) 6, Body Fluid Mononuclear Cells % Auto 90.4H, Fluid Polymorphonuclear Cell % Auto 9.6H, Pleural Fluid Source PLEURAL, Pleural Fluid Color YELLOW, Pleural Fluid Appearance HAZY 08/26/19 03:40: Immature Granulocyte % (Auto) 0.2, Neutrophils (%) (Auto) 84.4H, Lymphocytes (%) (Auto) 8.8L, Monocytes (%) (Auto) 6.4H, Eosinophils (%) (Auto) 0.0, Basophils (%) (Auto) 0.2, Neutrophils # (Auto) 7.8, Lymphocytes # (Auto) 0.8L, Monocytes # (Auto) 0.6, Eosinophils # (Auto) 0.0, Basophils # (Auto) 0.0, Nucleated Red Blood Cells % (auto) 0.0, Anion Gap 7L, Glomerular Filtration Rate > 60.0, Calcium Level 8.6L, Magnesium Level 1.6L CBC/BMP Laboratory Tests 08/25/19 17:31 08/26/19 03:40 Microbiology Microbiology 08/25/19 Acid Fast Stain, Received Pending 08/25/19 Mycobacterial Culture, Received Pending 08/25/19 Fungal Smear, Received Pending 08/25/19 Fungal Culture, Received Pending 08/25/19 Gram Stain - Final, Resulted 08/25/19 Anaerobic Culture, Resulted Pending 08/25/19 Body Fluid Culture, Received Pending 08/25/19 Blood Culture, Received Pending Attending Note Attending Note Pain control is adequate although she does acknowledge discomfort at chest tube site. Not dyspneic. BP remains high but seems to be a bit better this am. Agree with Ms Sibley's plan to monitor w/o additional intervention at this time. REYNA SIBLEY PA-C Aug 26, 2019 09:54 Migue Oh MD Aug 26, 2019 10:21
[2019-08-26 10:23] LABS: AMYLASE, BODY FLUID 36 U/L (NOT ESTABLISHED); CHOLESTEROL, BODY FLUID 117 MG/DL (NOT ESTABLISHED); LDH, BODY FLUID 609 U/L (NOT ESTABLISHED); SOURCE, BODY FLUID ALBUMIN PLEURAL; SOURCE, BODY FLUID AMYLASE PLEURAL; SOURCE, BODY FLUID CHOL PLEURAL; SOURCE, BODY FLUID GLUCOSE PLEURAL; SOURCE, BODY FLUID LDH PLEURAL; SOURCE, BODY FLUID TOT PROTEIN PLEURAL; SOURCE, BODY FLUID TRIG PLEURAL; TOTAL PROTEIN, BODY FLUID 4.7 G/DL (NOT ESTABLISHED); TRIGLYCERIDE, BODY FLUID 40 MG/DL (NOT ESTABLISHED)
[2019-08-26] MEDS ORDERED: ISOVUE-370 76% 100ML VIAL (Q9967) As Ordered ONE (10:34)
--- NOTE | 2019-08-26 11:27 | REP ---
Clinical: Increasing chest pain. Comparison: 08/25/2019 Technique: Axial contrast enhanced images from the thoracic inlet to the upper abdomen using 100 ml Isovue 370 intravenous contrast material with multiplanar re-formations. Findings: Satisfactory enhancement of the pulmonary vasculature is achieved and no filling defects are identified to suggest pulmonary embolus. Chest tube at the right base. The previous pleural effusion has essentially resolved and a small anterior pneumothorax is identified. Moderate areas of consolidation involve the right lower lobe and right middle lobe. Underlying advanced emphysematous changes and chronic scarring appreciated. Mediastinum demonstrates atherosclerotic changes to the thoracic aorta and coronary arteries without aortic aneurysm or dissection. No cardiomegaly or pericardial effusion. Impression: 1. No pulmonary embolus. 2. Right effusion essentially resolved with small right anterior pneumothorax noted. 3. Ill-defined areas of consolidation primarily right lower lobe and to a lesser extent right middle lobe. 4. Chronic advanced emphysematous changes. Electronically Signed by Logan Leggett MD 08/26/2019 11:19 A
--- NOTE | 2019-08-26 13:13 | IPN ---
DATE: 08/26/2019 Mrs. Atwood is up out of her chair today, breathing well. In fact, she is breathing a whole lot better than she was last night prior to her chest tube insertion. Her pain is being well controlled at the chest tube insertion site. I have gone over the preliminary cytology with Dr. Bermeo of pathology, and it is indeed malignant, probably adenocarcinoma. Her vital signs show a maximum temperature (Tmax) of 98.1 with a heart rate that ranges between 85 and 113 in a sinus rhythm, respiratory rate of 18-28 without the use of accessory muscles, who is 97-92% saturated on room air, and whose blood pressures are ranging between 168/74 to 120/98. Her intake and output for the past 24 hours has been recorded as 425 in and 2750 out for a negativity of 2325 mL, which includes 2 liters from her chest yesterday. She has put out 130 mL in the past 12 hours. There is no air leak. On physical examination, there are some rales during inspiration in the right lower hemithorax. Percussion note is full to the diaphragm. I hear no wheezes. Cardiac exam is without murmurs, clicks, gallops, or rubs. I cannot feel her point of maximum impulse (PMI). S1, S2, normal. Abdomen: Soft. Nontender. Bowel sounds are positive. There is no hepatomegaly. No costovertebral angle (CVA) tenderness. Extremities: Show no pretibial edema. No calf tenderness. No differential swelling of the upper extremities. Skin is warm, dry, and perfused. Without cyanosis or mottling, including that of the nail beds and knees. Neck is supple. There is no jugular venous distention. No subcutaneous emphysema. Trachea is midline. Mouth shows her mucous membranes to be pink and moist. Lips and commissures without lesions. There is no thrush. Eyes show her pupils to be equal and reactive. Extraocular movements intact. Sclerae nonicteric. Neurologic: Shows II-XII intact along with gross motor and gross sensation intact. Gait is not tested. Psychiatric shows her to be awake, alert, and oriented times three with appropriate mood and affect and conversational. Her white count today is 9.2 with hemoglobin and hematocrit of 14.2 and 41.9, respectively with a platelet count of 297 and stable. Differential shows 84% neutrophils, 8% lymphocytes, 6% monocytes. There are no immature forms. No toxic granulations. Her electrolytes are normal with a BUN, creatinine of 11 and 0.75. Glucose of 131, a calcium of 8.6, and magnesium 1.6. Her pleural fluid has been returned with a pH of 7.58 with an LDH of 609 and a total protein 4.7. This looks to be exudative and normoglycemic with a glucose of 118. She has 732 white cells, 90% of which are mononuclear and lymphocytes. Her pathology is discussed above, showing probable adenocarcinoma. Her chest x-ray today shows her lung fully expanded to the chest wall. I did obtain a CT scan on her prior to knowing what the cytology was, because of the suddenness of onset 2 weeks ago with her shortness of breath. It does not show a pulmonary embolism. She has an infiltrate in the left lower lobe, probably secondary to compression. It does not look like a mass process. I do not see pathologic lymphadenopathy. She does have multiple pleural studs throughout the right pleura. This probably represents the source of her metastatic disease. IMPRESSION: 1. Metastatic carcinoma. Final pathology pending. 2. Pleural effusion. Relieved with a chest tube. 3. Shortness of breath secondary to pleural effusion, relieved with a chest tube. 4. Hypertension. 5. Pleural nodules, right side. 6. Probable bilateral renal adenomas. 7. Hypothyroidism. 8. Hyperlipidemia. PLAN AND DISCUSSION: I will keep her chest tube in until it drains less than 200 mL a day. She, out of hand, rejects any oncologic therapy. In particular, she does not want chemotherapy. I have counseled her that we will have to figure out exactly what type of cancer this is and then, perhaps, there would be a more benign therapy, particularly if it is breast cancer, which might respond to, or be controlled by, hormonal therapy. She states that she has already had her ovaries out, so I do not think this represents ovarian carcinoma.
[2019-08-26] MEDS: POTASSIUM CHLORIDE 10 MEQ SR TABLET PO SCH (15:39)
[2019-08-26] MEDS: MAGNESIUM OXIDE 400 MG TAB (MAG-OX) PO SCH (15:39)
--- NOTE | 2019-08-26 17:50 | REP ---
Right upper quadrant sonography: History: Abnormal findings on CT study. Chest CT August 26, 2019. Findings: Scanning through right upper quadrant of the abdomen demonstrates a normal sized thin-walled gallbladder without evidence of stone or polyp. Common bile duct is normal measuring 0.6 cm in greatest diameter. There are multiple hepatic cysts noted, the largest of which measures 1.3 cm in greatest diameter. There is evidence fatty infiltration of the liver. No focal liver mass lesion is seen. No right renal abnormality noted. Right kidney measures 8.6 x 4.5 x 4.4 cm Impression: Small cyst seen in the right lobe of the liver. Fatty infiltration of the liver. Otherwise negative. Electronically Signed by Jackson Curran MD 08/27/2019 10:45 A
[2019-08-26] MEDS: diazePAM 5 MG TAB PO PRN (18:26)
--- NOTE | 2019-08-26 19:22 | ECHO ---
DATE OF PROCEDURE: 08/26/2019 REFERRING PHYSICIAN: Dr. Malcolm INDICATION: Dyspnea. Height is 163 cm, weight is 64 kg. DIMENSIONS: IVS: 1.3 LV: 3.1 LVPW: 1.3 LA: 3.4 Aorta: 2.7 IVC: 0.9 Mitral E wave velocity: 66 A-wave: 120 E prime septal: 6.4 E prime lateral: 8.5 FINDINGS: The study is of acceptable technical quality. There are very poor parasternal and apical views but subcostal views are decent. The patient is in sinus rhythm. Left ventricle is normal size and has normal systolic function, I estimate ejection fraction (EF) 65-70%. Mild left ventricular hypertrophy (LVH) is noted. Right ventricle appears normal. Both atria appear normal. Aortic valve is sclerotic but has normal mobility. Mitral valve also exhibits mild degenerative abnormalities but mobility of leaflets is preserved. Tricuspid valve is normal. Pulmonic valve was poorly seen. No pericardial effusion is present. Inferior vena cava is of relatively small caliber and collapses with inspiration indicative of normal central venous pressure. Doppler interrogation reveals no aortic stenosis and trace insufficiency. There is no mitral stenosis or insufficiency and trace tricuspid insufficiency. Calculated pulmonary artery pressure was within normal limits, but the quality of TR jet was poor and this should not be considered completely reliable. Mitral inflow pattern and tissue Doppler imaging of mitral annulus revealed grade 1 diastolic dysfunction. CONCLUSIONS: 1. Study is of acceptable technical quality, the patient is in sinus rhythm. 2. Normal left ventricular (LV) size with mild LVH, preserved LV systolic function and grade 1 diastolic dysfunction. 3. No hemodynamically significant valvular disease. 4. Normal central venous pressure and probably normal pulmonary artery pressure. COMMENT: Subacute bacterial endocarditis (SBE) prophylaxis is not recommended. The study is probably nearly normal for patient's age and argues against congestive heart failure even though it cannot completely rule it out. [facility]
[2019-08-27] VITALS (7 sets, daily range): BP systolic 146–172; BP diastolic 70–82
[2019-08-27] MEDS: NORCO, ANEXSIA 5/325MG TABLET (HYDROcodone/ACETAMINOPHEN) PO PRN ×3 (03:44→20:21)
[2019-08-27] MEDS: IPRATROPIUM 0.5MG/ALBUTEROL 2.5MG INH SOL UD 3ML (DUONEB)(J7620) NEB SCH ×5 (04:00→20:58)
[2019-08-27] MEDS: LEVOTHYROXINE 75MCG TABLET (0.075MG) PO SCH (05:15)
[2019-08-27 05:33] LABS: BASO % 0.1 % (0.0-1.0); EOS % 0.2 % (0.0-3.0); HEMATOCRIT 40.5 % (36.0-47.0); HEMOGLOBIN 13.6 g/dl (12.0-15.5); LYMPH # 0.8 10^3/uL (1.5-5.0); LYMPH % 9.2 % (24.0-44.0); MEAN CORPUSCULAR HEMOGLOBIN 30.1 pg (27.0-33.0); MEAN CORPUSCULAR HGB CONC 33.6 g/dl (32.0-36.5); MEAN CORPUSCULAR VOLUME 89.6 fl (80.0-96.0); MONO # 0.8 10^3/uL (0.0-0.8); MONO % 8.7 % (0.0-5.0); NEUTROPHILS # 7.1 10^3/uL (1.5-8.5); NEUTROPHILS % 81.3 % (36.0-66.0); PLATELET COUNT, AUTOMATED 264 10^3/uL (150-450); RED BLOOD COUNT 4.52 10^6/uL (4.00-5.40); WHITE BLOOD COUNT 8.7 10^3/uL (4.0-10.0)
[2019-08-27 05:56] LABS: BLOOD UREA NITROGEN 14 MG/DL (7-18); CALCIUM LEVEL 8.3 MG/DL (8.8-10.2); CARBON DIOXIDE LEVEL 29 MEQ/L (21-32); CHLORIDE LEVEL 98 MEQ/L (98-107); CREATININE FOR GFR 0.78 MG/DL (0.55-1.30); GLOMERULAR FILTRATION RATE > 60.0 (>39); GLUCOSE, FASTING 110 MG/DL (70-100); SODIUM LEVEL 134 MEQ/L (136-145)
--- NOTE | 2019-08-27 08:26 | REP ---
Clinical: Pleural effusion. Technique: PA and lateral. Comparison: 08/26/2019. Findings: Chest tube at the right base remain stable. Opacities at the right base are essentially unchanged. A small right pneumothorax is now identifiable. Mediastinum and cardiac silhouette are normal. Left hemithorax is stable. Skeletal structures are intact. Impression: 1. Small right pneumothorax now identifiable. 2. Right basilar opacities similar to prior examination. 3. No new acute consolidation. Electronically Signed by Logan Leggett MD 08/27/2019 08:17 A
[2019-08-27] MEDS ORDERED: POTASSIUM CHLORIDE 10 MEQ SR TABLET PO ONE (08:30)
[2019-08-27] MEDS: MOM 30ML SUSPENSION UDC PO SCH (09:00)
[2019-08-27] MEDS: MAGNESIUM OXIDE 400 MG TAB (MAG-OX) PO SCH (09:04)
[2019-08-27] MEDS: PANTOPRAZOLE 40MG TAB (PROTONIX) PO SCH (09:04)
[2019-08-27] MEDS: DOCUSATE SODIUM 100 MG CAP PO SCH ×2 (09:04→20:20)
[2019-08-27] MEDS: CHLORTHALIDONE 25 MG TAB PO SCH (09:04)
[2019-08-27] MEDS: predniSONE 10 MG TAB PO SCH ×3 (09:05→20:20)
[2019-08-27] MEDS: HEPARIN SOD (PORCINE) 5000 UNITS/ML VIAL (J1644 PER 1000UNITS) SC SCH ×2 (09:05→20:21)
[2019-08-27] MEDS: LevoFLOXacin 250 MG TABLET PO SCH (09:05)
[2019-08-27] MEDS: VERAPAMIL 80 MG TAB PO SCH ×2 (09:05→20:20)
--- NOTE | 2019-08-27 10:39 | IPNPDOC ---
Subjective Date Seen The patient was seen on 08/27/19. Subjective Chief Complaint/HPI Pt this morning without new concerns. She states that her pain is controlled. Her breathing is significantly better. General: Denies: Fatigue Constitutional: Denies: Chills, Fever ENT: Denies: Head Aches Pulmonary: Denies: Dyspnea, Cough Cardiovascular: Denies: Chest Pain, Palpitations Gastrointestinal: Denies: Nausea, Vomiting, Diarrhea Neurological: Denies: Weakness Psych: Reports: Mood Normal Objective Physical Examination General Exam: Positive: Alert, Cooperative ENT Exam: Positive: Mucous membr. moist/pink Neck Exam: Positive: Supple; Negative: JVD Chest Exam: Positive: Diminished (slightly diminished throughout with crackles at the right base) Heart Exam: Positive: Rate Normal, Normal S1, Normal S2 Telemetry: Positive: No significant arrhythmia Abdomen Exam: Positive: Normal bowel sounds, Soft; Negative: Tenderness Extremity Exam: Negative: Clubbing, Cyanosis, Edema Skin Exam: Positive: Nl turgor and temperature Psych Exam: Positive: Mental status NL Assessment /Plan Problems (1) Pleural effusion, right Status: Acute Response to Treatment: Stable Discussed With: Nurse, Patient, Family with Pt Consent Problem Specific Plan: Consult Specialist, Monitor Clinically, Repeat Labs Problem Text: 08/27 Dr Shetty cont to manage CT, 350 cc outpt yesterday. Likely will need longer term option given persistent output and high potential for malignancy. 08/[address] and is managing CT, pathology pending, CXR this AM shows improvement in effusion, will need CT chest with contrast, renal function will should support this later today. This will provide additional information regarding her pleural nodules and pericardial lymph nodes. (2) Hypertensive urgency Status: Acute Problem Text: 08/27 pressures remain elevated, will cont with verapamil and chlorthalidone, add losartan 50 mg daily. 08/26 She has verapamil and chlorthalidone ordered, pressures have come down some since admission, also has PRN hydralazine available, cont to monitor pressures. (3) Pleural nodules Problem Specific Plan: Consult Specialist (ee) Problem Text: See above. (4) Hypothyroidism Status: Chronic Response to Treatment: Stable Problem Specific Plan: Monitor Clinically Problem Text: Cont with levothyroxine 75 mcg po daily. (5) Adrenal adenoma Problem Text: Noted on CT without contrast on admission, for more complete evaluation pt would need MRI with and without contrast. I will hold off on this as the Chest CT with contrast will need to be done today. She also will needs liver US, which I will order for tomorrow morning. Plan/VTE VTE Prophylaxis Ordered?: Yes VS, I&O, 24H, Fishbone Vital Signs/I&O Vital Signs Date Time Temp Pulse Resp B/P (MAP) Pulse Ox O2 Delivery O2 Flow Rate FiO2 08/27/19 09:05 99 165/78 08/27/19 08:00 98.5 18 95 08/27/19 04:00 Room Air 08/26/19 07:21 2.0 I&O- Last 24 Hours up to 6 AM 08/27/19 06:00 Intake Total 1290 ml Output Total 1150 ml Balance 140 ml Laboratory Data 24H LABS Laboratory Tests 2 08/27/19 05:01: Immature Granulocyte % (Auto) 0.5, Neutrophils (%) (Auto) 81.3H, Lymphocytes (%) (Auto) 9.2L, Monocytes (%) (Auto) 8.7H, Eosinophils (%) (Auto) 0.2, Basophils (%) (Auto) 0.1, Neutrophils # (Auto) 7.1, Lymphocytes # (Auto) 0.8L, Monocytes # (Auto) 0.8, Eosinophils # (Auto) 0.0, Basophils # (Auto) 0.0, Nucleated Red Blood Cells % (auto) 0.0, Anion Gap 7L, Glomerular Filtration Rate > 60.0, Calcium Level 8.3L CBC/BMP Laboratory Tests 08/27/19 05:01 Microbiology Microbiology 08/25/19 Acid Fast Stain, Received Pending 08/25/19 Mycobacterial Culture, Received Pending 08/25/19 Fungal Smear, Received Pending 08/25/19 Fungal Culture, Received Pending 08/25/19 Gram Stain - Final, Complete 08/25/19 Anaerobic Culture - Final, Complete 08/25/19 Body Fluid Culture - Final, Complete 08/25/19 Blood Culture - Preliminary, Resulted No growth after 24 hours . All specim... REYNA SIBLEY PA-C Aug 27, 2019 10:38
[2019-08-27] MEDS: LOSARTAN 50 MG TAB PO SCH (10:50)
--- NOTE | 2019-08-27 11:46 | IPN ---
DATE: 08/27/2019 Ms. Atwood is in good spirits today. Her pain is well controlled at the chest tube insertion site. She is not complaining of shortness of breath. Her vital signs show a maximum temperature (T-max) of 98.5 with a heart rate that ranges between 91 and 102 and in sinus rhythm. Respiratory rate of 18-20 without the use of accessory muscles, who is 95% saturated on room air and has a blood pressures ranging between 165/78 to 180/70. Her intake and output over the past 24 hours is recorded as 1860 and 1225 out for a positivity of 635 mL. She has put out 350 mL from the chest tube and she weighs 64.1 kg today identical to yesterday's weight. On physical examination, she has inspiratory crackles at the right base. Percussion note is full to the diaphragm. The left base shows normal vesicular sounds. Cardiac exam is without murmurs, clicks, gallops or rubs. I cannot feel her point of maximum impulse (PMI). S1 and S2 are normal. Abdomen is soft and nontender. Bowel sounds are positive. There is no hepatomegaly. No costovertebral angle (CVA) tenderness. Extremities still no pretibial edema with no calf tenderness. No differential swelling of the upper extremities. Skin is warm, dry and perfused without cyanosis or mottling including that of the nail beds and knees. Neck is supple. There is no jugular venous distention. No subcutaneous emphysema. Trachea is midline. Mouth shows her mucous membranes to be pink and moist. Lips and commissures are without lesions. There is no thrush. Eyes show her pupils to be equal and reactive. Extraocular movements intact. Sclerae nonicteric. Neurologic shows II-XII intact along with gross motor and gross sensation intact. Gait is not tested. Psychiatric showed her to be awake, alert and oriented times three with appropriate and affect and conversational. Her white count is 8.7 with hemoglobin and hematocrit 13.6 and 40.5 respectively with a platelet count of 264. Differential shows 81% neutrophils, 9% lymphocytes, 8% monocytes. There are no immature forms or toxic granulations. Her electrolytes are normal except for a marginally low sodium of 134. BUN and creatinine are 14 and 0.78, glucose 110 and calcium 8.3. Her chest x-ray shows lungs fully expanded to the chest wall with a small apical cap in the right cupula. There are no posterior infiltrates. Costophrenic angles are sharp. She underwent a liver ultrasound yesterday. No note is mentioned of her pancreas. IMPRESSION: 1. Metastatic carcinoma, final pathology pending to the pleura and pleural fluid. 2. Pleural effusion, I will leave the chest tube. 3. Shortness of breath secondary to tube, resolved. 4. Hypertension. 5. Pleural nodules right side. 6. Probable bilateral renal adenomas. 7. Hypothyroidism. 8. Hyperlipidemia. PLAN/DISCUSSION: She still is rejecting out-of-hand chemotherapy for whatever cancer we show her to have. She wishes to go home on hospice. Her daughter's would like her to see oncology and she is amenable to doing so. Nonetheless, she has pleural studding and her pleural effusion is no doubt going to recur. The choices are talc pleurodesis, which will require 6-day hospital stay or a PleurX catheter. She has opted for a PleurX catheter and therefore, I will discontinue her chest tube today, wait for her to re-accumulate and then place a PleurX catheter.
[2019-08-27] MEDS: POTASSIUM CHLORIDE 10 MEQ SR TABLET PO SCH (12:19)
[2019-08-27] MEDS: diazePAM 5 MG TAB PO PRN (14:32)
[2019-08-28] VITALS: BP 142/60
[2019-08-28] MEDS: IPRATROPIUM 0.5MG/ALBUTEROL 2.5MG INH SOL UD 3ML (DUONEB)(J7620) NEB SCH ×6 (00:09→20:38)
[2019-08-28] MEDS: LEVOTHYROXINE 75MCG TABLET (0.075MG) PO SCH (05:23)
[2019-08-28 06:03] LABS: BASO % 0.1 % (0.0-1.0); HEMATOCRIT 41.2 % (36.0-47.0); HEMOGLOBIN 13.5 g/dl (12.0-15.5); LYMPH # 0.7 10^3/uL (1.5-5.0); LYMPH % 7.2 % (24.0-44.0); MEAN CORPUSCULAR HEMOGLOBIN 29.7 pg (27.0-33.0); MEAN CORPUSCULAR HGB CONC 32.8 g/dl (32.0-36.5); MEAN CORPUSCULAR VOLUME 90.5 fl (80.0-96.0); MONO # 0.7 10^3/uL (0.0-0.8); MONO % 7.1 % (0.0-5.0); NEUTROPHILS # 7.8 10^3/uL (1.5-8.5); NEUTROPHILS % 85.1 % (36.0-66.0); PLATELET COUNT, AUTOMATED 244 10^3/uL (150-450); RED BLOOD COUNT 4.55 10^6/uL (4.00-5.40); WHITE BLOOD COUNT 9.2 10^3/uL (4.0-10.0)
[2019-08-28 06:28] LABS: CALCIUM LEVEL 8.7 MG/DL (8.8-10.2); CREATININE FOR GFR 1.26 MG/DL (0.55-1.30); GLOMERULAR FILTRATION RATE 43.6 (>39); MAGNESIUM LEVEL 1.9 MG/DL (1.8-2.4); POTASSIUM SERUM 3.3 MEQ/L (3.5-5.1)
[2019-08-28 08:00] VITALS: BP 174/79
[2019-08-28] MEDS: HEPARIN SOD (PORCINE) 5000 UNITS/ML VIAL (J1644 PER 1000UNITS) SC SCH ×2 (08:34→20:10)
[2019-08-28] MEDS: MAGNESIUM OXIDE 400 MG TAB (MAG-OX) PO SCH (08:34)
[2019-08-28] MEDS: LevoFLOXacin 250 MG TABLET PO SCH (08:35)
[2019-08-28] MEDS: PANTOPRAZOLE 40MG TAB (PROTONIX) PO SCH (08:35)
[2019-08-28] MEDS: DOCUSATE SODIUM 100 MG CAP PO SCH ×2 (08:35→20:09)
[2019-08-28] MEDS: predniSONE 10 MG TAB PO SCH ×3 (08:35→20:09)
[2019-08-28] MEDS: CHLORTHALIDONE 25 MG TAB PO SCH (08:36)
[2019-08-28] MEDS: MOM 30ML SUSPENSION UDC PO SCH (08:36)
[2019-08-28] MEDS: LOSARTAN 50 MG TAB PO SCH (08:40)
[2019-08-28] MEDS: VERAPAMIL 80 MG TAB PO SCH ×2 (08:43→20:09)
--- NOTE | 2019-08-28 08:55 | IPNPDOC ---
Subjective Date Seen The patient was seen on 08/28/19. Subjective Chief Complaint/HPI Pleural effusion Events since last encounter Repeat CXR pending for this am. Plan on PleurX catheter placement pending CXR results and consult with Dr. Shetty. Patient denies c/o today. Constitutional: Denies: Chills, Fever, Night Sweats Skin: Denies: Rash, Lesions, Breakdown Pulmonary: Reports: Dyspnea; Denies: Cough Cardiovascular: Denies: Chest Pain, Palpitations, Orthopnea, Paroxysmal Noc. Dyspnea, Lt Headedness Gastrointestinal: Denies: Nausea, Vomiting, Abdominal Pain, Diarrhea, Constipation Genitourinary: Denies: Dysuria, Frequency, Incontinence, Retention Objective Physical Examination General Exam: Positive: Alert, Cooperative ENT Exam: Positive: Mucous membr. moist/pink Neck Exam: Positive: Supple Chest Exam: Positive: Rales (RLL) Heart Exam: Positive: Rate Normal, Normal S1, Normal S2 Telemetry: Positive: No significant arrhythmia Abdomen Exam: Positive: Normal bowel sounds, Soft Extremity Exam: Negative: Clubbing, Cyanosis, Edema Skin Exam: Positive: Nl turgor and temperature Psych Exam: Positive: Mental status NL Assessment /Plan Problems (1) Pleural effusion, right Status: Acute Response to Treatment: Stable Discussed With: Nurse, Patient, Family with Pt Consent Problem Specific Plan: Consult Specialist, Monitor Clinically, Repeat Labs Problem Text: 08/28/19: plan pending CXR. Appreciate intervention by Dr. Shetty. 08/27 Dr Shetty cont to manage CT, 350 cc outpt yesterday. Likely will need longer term option given persistent output and high potential for malignancy. 08/[address] and is managing CT, pathology pending, CXR this AM s hows improvement in effusion, will need CT chest with contrast, renal function will should support this later today. This will provide additional information regarding her pleural nodules and pericardial lymph nodes. (2) Hypertensive urgency Status: Acute Problem Text: 08/27 pressures remain elevated, will cont with verapamil and chlorthalidone, add losartan 50 mg daily. 08/26 She has verapamil and chlorthalidone ordered, pressures have come down some since admission, also has PRN hydralazine available, cont to monitor pre ssures. (3) Pleural nodules Problem Specific Plan: Consult Specialist (ee) Problem Text: See above. (4) Hypothyroidism Status: Chronic Response to Treatment: Stable Problem Specific Plan: Monitor Clinically Problem Text: Cont with levothyroxine 75 mcg po daily. (5) Adrenal adenoma Problem Text: Noted on CT without contrast on admission, for more complete evaluation pt would need MRI with and without contrast. I will hold off on this as the Chest CT with contrast will need to be done today. She also will needs liver US, which I will order for tomorrow morning. Plan/VTE VTE Prophylaxis Ordered?: Yes VS, I&O, 24H, Fishbone Vital Signs/I&O Vital Signs Date Time Temp Pulse Resp B/P (MAP) Pulse Ox O2 Delivery O2 Flow Rate FiO2 08/28/19 08:43 107 158/60 08/28/19 08:00 98.6 17 93 Room Air 08/26/19 07:21 2.0 I&O- Last 24 Hours up to 6 AM 08/28/19 06:00 Intake Total 1440 ml Output Total 600 ml Balance 840 ml Laboratory Data 24H LABS Laboratory Tests 2 08/28/19 05:35: Immature Granulocyte % (Auto) 0.5, Neutrophils (%) (Auto) 85.1H, Lymphocytes (%) (Auto) 7.2L, Monocytes (%) (Auto) 7.1H, Eosinophils (%) (Auto) 0.0, Basophils (%) (Auto) 0.1, Neutrophils # (Auto) 7.8, Lymphocytes # (Auto) 0.7L, Monocytes # (Auto) 0.7, Eosinophils # (Auto) 0.0, Basophils # (Auto) 0.0, Nucleated Red Blood Cells % (auto) 0.0, Anion Gap 9, Glomerular Filtration Rate 43.6, Calcium Level 8.7L, Magnesium Level 1.9 CBC/BMP Laboratory Tests 08/28/19 05:35 Microbiology Microbiology 08/25/19 Acid Fast Stain, Received Pending 08/25/19 Mycobacterial Culture, Received Pending 08/25/19 Fungal Smear, Received Pending 08/25/19 Fungal Culture, Received Pending 08/25/19 Gram Stain - Final, Complete 08/25/19 Anaerobic Culture - Final, Complete 08/25/19 Body Fluid Culture - Final, Complete 08/25/19 Blood Culture - Preliminary, Resulted No Growth after 48 hours. Davis Argueta... Richa Woodall CLINICAL INSTRUCTOR Aug 28, 2019 08:55
--- NOTE | 2019-08-28 09:51 | REP ---
Clinical: Pleural effusion. Technique: PA and lateral. Comparison: 08/27/2019. Findings: Chest tube has been removed. A small residual right apical pneumothorax is noted and pleuroparenchymal changes at the right base suggesting atelectasis and small residual pleural fluid is similar to prior examination. Left hemithorax is relatively clear/stable. Cardiac silhouette is normal. Skeletal structures are intact. Impression: 1. Small residual right apical pneumothorax and mild right basilar pleuroparenchymal changes suggesting elements of atelectasis and small pleural effusion. Electronically Signed by Logan Leggett MD 08/28/2019 08:07 A
--- NOTE | 2019-08-28 11:00 | IPN ---
DATE: 08/28/2019 Ms. Atwood is breathing well today. Her chest x-ray does not show a great amount of reaccumulation, although I am sure pleural effusion is going to reaccumulate in the next week or so. Her vital signs show a maximum temperature (T-max) of 98.5, with a heart rate that ranges between 81 and 110 in sinus rhythm. Respiratory rate of 17-16 without the use of accessory muscles who is 93-94% saturated on room air an whose blood pressures range between 142/60 to 174/79. Her intake and output over the past 24 hours is recorded as 1440 in and 605 out for a positivity of 835 mL. All of her intake has been by oral. Her chest tube was removed yesterday. Weight today is 64.1 kg compared to the identical 64.1 kg yesterday. On physical examination, she has some bronchophony in the right lower hemithorax but percussion note is full to the diaphragm. Left lung shows normal vesicular sounds. Cardiac exam is without murmurs, clicks, gallops or rubs. I cannot feel her point of maximum impulse (PMI). S1 and S2 are normal. Abdomen is soft and nontender. Bowel sounds are positive. There is no hepatomegaly. No costovertebral angle (CVA) tenderness. Extremities show no pretibial edema with no calf tenderness. No differential swelling of the upper extremities. Skin is warm, dry and perfused without cyanosis or mottling including that of the nail beds and knees. Neck is supple. There is no jugular venous distention. No subcutaneous emphysema. Trachea is midline. Mouth shows her mucous membranes to be pink and moist. Lips and commissures are without lesions. There is no thrush. Eyes show her pupils to be equal and reactive. Extraocular movements intact. Sclerae nonicteric. Neurologic shows II-XII intact along with gross motor and gross sensation intact. Gait is not tested. Psychiatric showed her to be awake, alert and oriented times three with appropriate and affect and conversational. White count today is 9.2 with a hemoglobin and hematocrit of 13.5 and 41.2 respectively, unchanged from yesterday with a platelet count of 244 and stable. Differential shows 85% neutrophils, 77% lymphocytes, 7% monocytes. There are no immature forms or toxic granulations. Her electrolytes show sodium 131, with a potassium of 3.3 and a BUN and creatinine of 1.26 and 43.6, which is considerably changed from 14 and 0.78 yesterday. Her pathology has been reported back as adenocarcinoma TTF1 positive most consistent with a lung primary. Her chest x-ray shows some blunting of the right costophrenic angle. On the lateral film, shows the same blunting but not very impressive as far as volume is concerned. I am sure it will come back, however. There are some atelectatic changes in the right lower hemithorax. IMPRESSION: 1. Metastatic adenocarcinoma stage IV lung cancer, markers pending. 2. Pleural effusion relieved with a chest tube, now waiting for reaccumulation. 3. Shortness of breath secondary to #2, resolved. 4. Hypertension. 5. Pleural nodules right side. 6. Probable bilateral renal adenomas. 7. Hypothyroidism. 8. Hyperlipidemia. PLAN AND DISCUSSION: I see no reason why she cannot go home today or tomorrow. I am a little concerned about her creatinine. She is on Cozaar and verapamil, which should not cause renal insufficiency. Her input and output indicate a positivity over the last 2 days. Her weight, however, has not changed. It might be prudent to keep her one more day to watch her kidney function. I will see her back in the office next week with a chest x-ray to await reaccumulation so I can have a target to place the PleurX catheter. I have contacted oncology and we will send the tissue for genetic markers to include EGFR, ALK, ROS and BRAF 1 along with PD-L1. I have spoken with Dr. Oh and he will arrange her discharge.
[2019-08-28] MEDS: POTASSIUM CHLORIDE 10 MEQ SR TABLET PO SCH (11:38)
[2019-08-28] MEDS: diazePAM 5 MG TAB PO PRN (11:38)
[2019-08-28 12:00] VITALS: BP 149/66
[2019-08-28 16:00] VITALS: BP 157/69
[2019-08-28 20:00] VITALS: BP 181/77
[2019-08-29] VITALS (7 sets, daily range): BP systolic 128–180; BP diastolic 50–80
[2019-08-29] MEDS: IPRATROPIUM 0.5MG/ALBUTEROL 2.5MG INH SOL UD 3ML (DUONEB)(J7620) NEB SCH ×3 (00:07→07:12)
[2019-08-29] MEDS: hydrALAZINE INJ 20 MG/ML VIAL IV PRN (04:47)
[2019-08-29] MEDS: LEVOTHYROXINE 75MCG TABLET (0.075MG) PO SCH (04:48)
[2019-08-29 05:42] LABS: EOS % 0.3 % (0.0-3.0); HEMATOCRIT 39.6 % (36.0-47.0); HEMOGLOBIN 13.1 g/dl (12.0-15.5); LYMPH # 0.8 10^3/uL (1.5-5.0); LYMPH % 9.7 % (24.0-44.0); MEAN CORPUSCULAR HEMOGLOBIN 29.7 pg (27.0-33.0); MEAN CORPUSCULAR HGB CONC 33.1 g/dl (32.0-36.5); MEAN CORPUSCULAR VOLUME 89.8 fl (80.0-96.0); MONO # 0.7 10^3/uL (0.0-0.8); MONO % 7.7 % (0.0-5.0); NEUTROPHILS # 7.1 10^3/uL (1.5-8.5); NEUTROPHILS % 81.6 % (36.0-66.0); PLATELET COUNT, AUTOMATED 230 10^3/uL (150-450); RED BLOOD COUNT 4.41 10^6/uL (4.00-5.40); WHITE BLOOD COUNT 8.7 10^3/uL (4.0-10.0)
[2019-08-29 06:09] LABS: BLOOD UREA NITROGEN 17 MG/DL (7-18); CARBON DIOXIDE LEVEL 27 MEQ/L (21-32); CHLORIDE LEVEL 95 MEQ/L (98-107); CREATININE FOR GFR 0.86 MG/DL (0.55-1.30); GLOMERULAR FILTRATION RATE > 60.0 (>39); GLUCOSE, FASTING 132 MG/DL (70-100); POTASSIUM SERUM 2.9 MEQ/L (3.5-5.1); SODIUM LEVEL 130 MEQ/L (136-145)
[2019-08-29] MEDS ORDERED: POTASSIUM CHLORIDE 10 MEQ SR TABLET PO ONE ×3 (07:00→16:00)
[2019-08-29] MEDS: HEPARIN SOD (PORCINE) 5000 UNITS/ML VIAL (J1644 PER 1000UNITS) SC SCH ×2 (08:18→21:00)
[2019-08-29] MEDS: DOCUSATE SODIUM 100 MG CAP PO SCH ×2 (08:18→21:00)
[2019-08-29] MEDS: PANTOPRAZOLE 40MG TAB (PROTONIX) PO SCH (08:19)
[2019-08-29] MEDS: MAGNESIUM OXIDE 400 MG TAB (MAG-OX) PO SCH (08:19)
[2019-08-29] MEDS: VERAPAMIL 80 MG TAB PO SCH ×2 (08:24→21:03)
[2019-08-29] MEDS: LOSARTAN 50 MG TAB PO SCH (08:24)
[2019-08-29] MEDS: diazePAM 5 MG TAB PO PRN (08:25)
[2019-08-29] MEDS: CHLORTHALIDONE 25 MG TAB PO SCH (08:27)
--- NOTE | 2019-08-29 08:38 | IPNPDOC ---
Subjective Date Seen The patient was seen on 08/29/19. Subjective Chief Complaint/HPI Pleural effusion Events since last encounter Potassium is 2.9 this am with a sodium of 130. Hypertensive overnight with 1 time IV Hydralazine. Constitutional: Denies: Chills, Fever, Night Sweats ENT: Denies: Head Aches, Ear Pain, Dysphagia Pulmonary: Reports: Dyspnea; Denies: Cough Cardiovascular: Denies: Chest Pain, Palpitations, Orthopnea, Paroxysmal Noc. Dyspnea, Lt Headedness Gastrointestinal: Denies: Nausea, Vomiting, Abdominal Pain, Diarrhea, Constipation Psych: Reports: Mood Normal; Denies: Depression, Memory Issues Objective Physical Examination General Exam: Positive: Alert, Cooperative ENT Exam: Positive: Mucous membr. moist/pink Neck Exam: Positive: Supple Chest Exam: Positive: Diminished Heart Exam: Positive: Rate Normal, Normal S1, Normal S2 Telemetry: Positive: No significant arrhythmia Abdomen Exam: Positive: Normal bowel sounds, Soft Extremity Exam: Negative: Clubbing, Cyanosis, Edema Skin Exam: Positive: Nl turgor and temperature Psych Exam: Positive: Mental status NL Assessment /Plan Problems (1) Pleural effusion, right Status: Acute Response to Treatment: Stable Discussed With: Nurse, Patient, Family with Pt Consent Problem Specific Plan: Consult Specialist, Monitor Clinically, Repeat Labs Problem Text: 08/29/2019: Will f/u with Dr. Shetty outpatient. 08/28/19: plan pending CXR. Appreciate intervention by Dr. Shetty. 08/27 Dr Shetty cont to manage CT, 350 cc outpt yesterday. Likely will need longer term option given persistent output and high potential for malignancy. 08/[address] and is managing CT, pathology pending, CXR this AM shows improvement in effusion, will need CT chest with contrast, renal function will should support this later today. This will provide additional information regarding her pleural nodules and pericardial lymph nodes. (2) Hypertensive urgency Status: Acute Problem Text: 08/29/19: Increase Losartan to 100 mg po daily. DC Hydralazine. 08/27 pressures remain elevated, will cont with verapamil and chlorthalidone, add losartan 50 mg daily. 08/26 She has verapamil and chlorthalidone ordered, pressures have come down so me since admission, also has PRN hydralazine available, cont to monitor pressures. (3) Pleural nodules Problem Specific Plan: Consult Specialist (ee) Problem Text: See above. (4) Hypothyroidism Status: Chronic Response to Treatment: Stable Problem Specific Plan: Monitor Clinically Problem Text: Cont with levothyroxine 75 mcg po daily. (5) Adrenal adenoma Problem Text: Noted on CT without contrast on admission, for more complete evaluation pt would need MRI with and without contrast. I will hold off on this as the Chest CT with contrast will need to be done today. She also will needs liver US, which I will order for tomorrow morning. (6) Anxiety Status: Chronic Problem Text: She has used diazepam as a daily night time dose for years, but has episodes of daytime anxiety that she would like to be able to treat as they happen. So will d/c diazepam and substitue alprazolam 0.5mg tid, prn (larger dose chosen due to likely tolerance resulting from chronic use of diazepam) (7) Hypokalemia Status: Acute Response to Treatment: Improving Problem Text: repletion in progress. (8) Hyponatremia Status: Acute Response to Treatment: Improving Problem Text: may need free water restriction or change from chlorthalidone to HCTZ which is less likely to worsen hyponatremia and hypokalmia Plan/VTE VTE Prophylaxis Ordered?: Yes VS, I&O, 24H, Fishbone Vital Signs/I&O Vital Signs Date Time Temp Pulse Resp B/P (MAP) Pulse Ox O2 Delivery O2 Flow Rate FiO2 08/29/19 08:24 150/60 08/29/19 08:24 88 08/29/19 04:00 96.4 18 93 Room Air 08/26/19 07:21 2.0 I&O- Last 24 Hours up to 6 AM 08/29/19 05:59 Intake Total 1050 ml Output Total 1400 ml Balance -350 ml Laboratory Data 24H LABS Laboratory Tests 2 08/29/19 05:21: Immature Granulocyte % (Auto) 0.7, Neutrophils (%) (Auto) 81.6H, Lymphocytes (%) (Auto) 9.7L, Monocytes (%) (Auto) 7.7H, Eosinophils (%) (Auto) 0.3, Basophils (%) (Auto) 0.0, Neutrophils # (Auto) 7.1, Lymphocytes # (Auto) 0.8L, Monocytes # (Auto) 0.7, Eosinophils # (Auto) 0.0, Basophils # (Auto) 0.0, Nucleated Red Blood Cells % (auto) 0.0, Anion Gap 8, Glomerular Filtration Rate > 60.0, Calcium Level 9.0 CBC/BMP Laboratory Tests 08/29/19 05:21 Microbiology Microbiology 08/25/19 Acid Fast Stain, Received Pending 08/25/19 Mycobacterial Culture, Received Pending 08/25/19 Fungal Smear, Received Pending 08/25/19 Fungal Culture, Received Pending 08/25/19 Gram Stain - Final, Complete 08/25/19 Anaerobic Culture - Final, Complete 08/25/19 Body Fluid Culture - Final, Complete 08/25/19 Blood Culture - Preliminary, Resulted No Growth after 72 hours. All specime... Richa Woodall Aug 29, 2019 08:38 Migue Oh MD Aug 29, 2019 13:15
--- NOTE | 2019-08-29 08:49 | REP ---
PA and lateral chest: Comparison is 08/28/2019. I do not identify a pneumothorax on the study today. There is effacement of the right costophrenic angle is slightly increased density inferiorly in the right lung. These findings are unchanged. The remainder of the right lung is clear. Left lung is clear. Cardiac size is normal. The lara, mediastinum, skeletal structures are unremarkable. Impression: The previous tiny right apical pneumothorax has resolved. There is persisting effacement right costophrenic angle and increased density inferiorly in the right lung. Electronically Signed by Tad Guerin MD 08/29/2019 08:41 A
[2019-08-29] MEDS: MOM 30ML SUSPENSION UDC PO SCH (09:00)
[2019-08-29] MEDS ORDERED: LOSARTAN 50 MG TAB PO ONE (09:00)
[2019-08-29 10:31] LABS: BLOOD UREA NITROGEN 15 MG/DL (7-18); CALCIUM LEVEL 9.3 MG/DL (8.8-10.2); CARBON DIOXIDE LEVEL 30 MEQ/L (21-32); CHLORIDE LEVEL 96 MEQ/L (98-107); CREATININE FOR GFR 0.89 MG/DL (0.55-1.30); GLOMERULAR FILTRATION RATE > 60.0 (>39); GLUCOSE, FASTING 107 MG/DL (70-100); POTASSIUM SERUM 3.3 MEQ/L (3.5-5.1); SODIUM LEVEL 133 MEQ/L (136-145)
[2019-08-29] MEDS: MIRALAX *UNIT DOSE* 17GM PACKET PO SCH (10:31)
[2019-08-29] MEDS ORDERED: IPRATROPIUM 0.5MG/ALBUTEROL 2.5MG INH SOL UD 3ML (DUONEB)(J7620) NEB SCH (12:00)
[2019-08-29] MEDS: POTASSIUM CHLORIDE 10 MEQ SR TABLET PO SCH (12:00)
[2019-08-29] MEDS ORDERED: ALPRAZolam 0.5 MG TAB PO PRN (13:00)
[2019-08-29 13:34] LABS: POTASSIUM SERUM 3.6 MEQ/L (3.5-5.1)
[2019-08-29 15:51] LABS: MAGNESIUM LEVEL 1.9 MG/DL (1.8-2.4)
--- NOTE | 2019-08-29 17:19 | IPN ---
DATE: 08/29/2019 We were ready to send Ms. Atwood home today; however, she became hypokalemic with a potassium of 2.9 and mildly hyponatremic with a sodium of 130. Therefore, we decided to keep her to replace her potassium. Today she is feeling rather well. She is not complaining of shortness of breath. There is no cough or sputum production. Her vital signs show a maximum temperature (T max) of 97.9 with a heart rate that ranges between 88 and 106 and is sinus rhythm, a respiratory rate of 16 to 20 without the use of accessory muscles who is 93 to 91% saturated on room air, and whose blood pressure is ranging between 144/75 to 150/60. Her intake and output over the past 24 hours has been recorded as 1050 in and 1150 out for a negativity of 100 mL. She weighs 64.8 kg today compared to 64.1 kg yesterday. On physical examination, she has nearly normal vesicular sounds with some inspiratory rales at the right lower base. Percussion note, however, is full to the diaphragm. Cardiac exam is without murmurs, clicks, gallops or rubs. I cannot feel her point of maximum impulse (PMI). S1, S2 are normal. Abdomen is soft and nontender. Bowel sounds are positive. There is no hepatomegaly. No costovertebral angle tenderness. Extremities show no pretibial edema. No calf tenderness. No differential swelling of the upper extremities. Skin is warm, dry and perfused without cyanosis or mottling, including that of the nail beds and the knees. Neck is supple. There is no jugular venous distention, no subcutaneous emphysema. Trachea is midline. Mouth shows her mucous membranes to be pink and moist. Lips and commissures without lesions. There is no thrush. Eyes show her pupils to be equal and reactive. Extraocular motions intact. Sclerae anicteric. Neurologic shows II-XII intact along with gross motor and gross sensation intact. Gait is not tested. Psychiatric shows her to be awake and alert, oriented times three with appropriate mood and affect and conversational. Her white count today is 8.7 with a hemoglobin and hematocrit of 13.1 and 39.6 with a platelet count of 230 and stable. Differential shows 81% neutrophils, 9% lymphocytes, 7% monocytes. There are no immature forms. No toxic granulations. Her chemistries are noted above. BUN and creatinine are 17 and 0.86 with a glucose of 132 and a calcium of 9.0. Her chest x-ray shows some minor blunting of the right costophrenic angle. It is essentially unchanged from yesterday. Lateral chest x-ray does not show any accumulation of fluid. IMPRESSION: 1. Metastatic adenocarcinoma stage IV lung cancer, final markers pending. 2. Pleural effusion, relieved with a chest tube, now waiting for reaccumulation. 3. Shortness of breath secondary to #2, resolved. 4. Hypertension. 5. Pleural nodules right side. 6. Probable bilateral renal adenomas. 7. Hypothyroidism. 8. Hyperlipidemia. PLAN AND DISCUSSION: Because of her electrolyte abnormalities, we are going to keep her another day and correct those. I have personally gone down to the cancer center to speak with the nurse navigator, and she is going to come up and speak with Ms. Atwood regarding an appointment. Final markers, including ROS1, EGFR, ALK, and BRAF will not be back for about another 2 weeks. PD-L1 should be back in the next 5 days. At that time, she will be going to the cancer center and have a discussion with oncology regarding her options. I do suspect she is going to reject all of the options out of hand and go home on hospice. Right now she is quite functional, and I may have to put a PleurX catheter should her fluid return.
[2019-08-30] VITALS: BP 138/67
[2019-08-30 04:00] VITALS: BP 144/67
[2019-08-30] MEDS: LEVOTHYROXINE 75MCG TABLET (0.075MG) PO SCH (05:48)
[2019-08-30 06:41] LABS: BASO % 0.1 % (0.0-1.0); EOS # 0.2 10^3/uL (0.0-0.5); EOS % 1.9 % (0.0-3.0); HEMATOCRIT 41.3 % (36.0-47.0); HEMOGLOBIN 13.9 g/dl (12.0-15.5); LYMPH # 1.8 10^3/uL (1.5-5.0); LYMPH % 15.3 % (24.0-44.0); MEAN CORPUSCULAR HEMOGLOBIN 30.3 pg (27.0-33.0); MEAN CORPUSCULAR HGB CONC 33.7 g/dl (32.0-36.5); MEAN CORPUSCULAR VOLUME 90.2 fl (80.0-96.0); MONO # 1.1 10^3/uL (0.0-0.8); MONO % 9.5 % (0.0-5.0); NEUTROPHILS # 8.6 10^3/uL (1.5-8.5); NEUTROPHILS % 72.7 % (36.0-66.0); PLATELET COUNT, AUTOMATED 275 10^3/uL (150-450); RED BLOOD COUNT 4.58 10^6/uL (4.00-5.40); WHITE BLOOD COUNT 11.9 10^3/uL (4.0-10.0)
[2019-08-30 07:00] LABS: CALCIUM LEVEL 8.8 MG/DL (8.8-10.2); CREATININE FOR GFR 0.99 MG/DL (0.55-1.30); GLOMERULAR FILTRATION RATE 57.6 (>39); POTASSIUM SERUM 4.2 MEQ/L (3.5-5.1)
[2019-08-30 08:00] VITALS: BP 118/42
[2019-08-30] MEDS: MAGNESIUM OXIDE 400 MG TAB (MAG-OX) PO SCH (08:04)
[2019-08-30] MEDS: VERAPAMIL 80 MG TAB PO SCH (08:06)
[2019-08-30] MEDS: CHLORTHALIDONE 25 MG TAB PO SCH (08:06)
[2019-08-30] MEDS: PANTOPRAZOLE 40MG TAB (PROTONIX) PO SCH (08:06)
--- NOTE | 2019-08-30 08:06 | REP ---
Clinical: Pleural effusion. Technique: PA and lateral. Comparison: 08/29/2019. Findings: Small right pleural effusion and right basilar air space disease are similar to prior examination. By apical scarring. No obvious pneumothorax. Mediastinum and cardiac silhouette are stable within normal limits. Skeletal structures are stable. Impression: Small right pleural effusion and right basilar air space disease unchanged. Electronically Signed by Logan Leggett MD 08/30/2019 07:57 A
[2019-08-30 08:07] VITALS: BP 162/60
[2019-08-30] MEDS: HEPARIN SOD (PORCINE) 5000 UNITS/ML VIAL (J1644 PER 1000UNITS) SC SCH (08:07)
[2019-08-30] MEDS: MOM 30ML SUSPENSION UDC PO SCH (08:08)
[2019-08-30] MEDS: DOCUSATE SODIUM 100 MG CAP PO SCH (08:08)
[2019-08-30] MEDS: MIRALAX *UNIT DOSE* 17GM PACKET PO SCH (08:08)
[2019-08-30] MEDS ORDERED: COZA50TA PO (08:27)
[2019-08-30] MEDS ORDERED: MAG400TA PO (08:27)
[2019-08-30] MEDS ORDERED: LOSARTAN 50 MG TAB PO SCH (09:00)
[2019-08-30] MEDS: POTASSIUM CHLORIDE 10 MEQ SR TABLET PO SCH (11:43)
[2019-08-30 12:00] VITALS: BP 122/46
[2019-08-30] MEDS ORDERED: ALPR0.5T3 PO (13:26)
--- NOTE | 2019-08-31 16:55 | DSES ---
DATE OF ADMISSION: 08/25/2019 DATE OF DISCHARGE: 08/30/2019 PRIMARY CARE PHYSICIAN: Regla Taylor PA-C CARDIOTHORACIC SURGEON: Dr. Tejinder Shetty HISTORY OF PRESENT ILLNESS: This is a 79-year-old female who presented to [facility] Emergency Department (ED) for complaints of increased shortness of breath. Workup in the ED proved positive for a large right pleural effusion on CT scan of the chest. Patient was also noted to have significant hypertension with an initial blood pressure of 200/100. HOSPITAL COURSE: Regarding right pleural effusion, patient is status post consultation with Dr. Tejinder Shetty. Chest tube was placed on August [address] Shetty. Pathology was sent out, and results have returned. Patient is aware of pleural cytology consistent with adenocarcinoma of the lung. Patient has consented to reviewing her treatment options and prognosis with hematology/oncology service; however, she states she will most likely proceed with hospice when she feels she is ready for that service. Regarding patient's hypertension, she did receive some hydralazine initially. Medications were adjusted, and she has done well with the addition of losartan 100 mg by mouth daily. Patient did have some difficulty with hypokalemia. She did well with recurrent supplementation. Her Levaquin and prednisone were stopped. She was placed on those prior to her hospitalization. PROCEDURES: Chest tube placement as noted by Dr. Shetty on August 28. Patient has tolerated the removal over the last 2 days. She has been able to ambulate within the room without severe dyspnea or difficulty. She has not required supplemental oxygenation. On physical examination, vital signs are stable. She is afebrile. Labs are stable with a sodium of 132, potassium 4.2, creatinine 0.99. Hematology shows a stable hemoglobin and hematocrit, which have remained stable throughout patient's hospitalization. Blood pressure today is 140/67 with a heart rate of 74. ASSESSMENT: 1. Large pleural effusion. 2. Adenocarcinoma of the lung. 3. Hypertension. 4. History of hypothyroidism. PLAN: Patient will be discharged to home. Diet is as tolerated. Activity is as tolerated. She will followup with her primary care physician (PCP) within the next 5-7 days. She will followup with Dr. Shetty within the next 7-10 days. MEDICATIONS: - losartan 100 mg by mouth daily - magnesium oxide 400 mg by mouth daily - albuterol sulfate HFA two puffs every 4 hours as needed for shortness of breath - chlorthalidone 25 mg by mouth daily - diazepam 5 mg by mouth three times a day - levothyroxine sodium 75 mcg by mouth every morning - artificial tears one drop both eyes four times a day as needed for dry eyes - potassium chloride 20 mEq by mouth daily - verapamil 80 mg two by mouth twice a day Patient is discharged in stable and satisfactory condition with no further questions at time of discharge.
== END 2019-08-30 14:31 | disposition home or self-care (01) | DRG 181 ==
LOC: M ED 16:53 → M ED INP 19:36 → ENRESERVDT 20:22 → ENRESERVTM 20:22 → M ICU 20:37 → M PCU 08-26 17:55
PROVIDERS: ADMIT Internal Medicine; ATTEND Family Medicine
PROC: 0W9930Z Drainage of Right Pleural Cavity with Drainage Device, Percutaneous Approach (ICD-10-PCS; principal; 2019-08-25)
DX: C34.31 Malignant neoplasm of lower lobe, right bronchus or lung (principal); J98.11 Atelectasis; E87.1 Hypo-osmolality and hyponatremia; J91.0 Malignant pleural effusion; D35.00 Benign neoplasm of unspecified adrenal gland; I10 Essential (primary) hypertension; E03.9 Hypothyroidism, unspecified; Z79.899 Other long term (current) drug therapy; E87.6 Hypokalemia; M19.90 Unspecified osteoarthritis, unspecified site; Z87.891 Personal history of nicotine dependence; D72.829 Elevated white blood cell count, unspecified; Z88.2 Allergy status to sulfonamides; Z88.6 Allergy status to analgesic agent; Z88.8 Allergy status to other drugs, medicaments and biological substances; G25.81 Restless legs syndrome; E78.5 Hyperlipidemia, unspecified; L40.8 Other psoriasis; Z85.828 Personal history of other malignant neoplasm of skin; Z89.431 Acquired absence of right foot; F41.9 Anxiety disorder, unspecified

== ENCOUNTER → 2019-08-25 | Outpatient (CLI) | payer OTHER, MEDICARE ==
[~2019-08-25] MED LIST changes: +ALBU8.5H INH; +CHLO125TA PO; +DIAZ5TAB PO; +LEVO250T12 PO; +POLYOPD OU; +POTA10CA32 PO; +PRED10TA2 PO
--- NOTE | 2019-08-25 15:06 | REP ---
Clinical: Shortness of breath. Technique: PA and lateral. Comparison: 05/30/2017. Findings: Right pleural effusion and right lower lobe atelectasis/consolidation. Underlying diffuse chronic interstitial changes are suggested. Left cardiac silhouette is within normal limits. No pneumothorax. Biapical scarring noted. Skeletal structures are intact. Impression: Large right pleural effusion and associated consolidation/atelectasis. Electronically Signed by Logan Leggett MD 08/25/2019 02:58 P
== END ==
LOC: M ADAMS 14:46
PROVIDERS: ATTEND Physician Assistant
DX: J90 Pleural effusion, not elsewhere classified (principal); J98.11 Atelectasis; R06.02 Shortness of breath

== ENCOUNTER → 2019-09-09 | Outpatient (CLI) | payer MEDICARE ==
[~2019-09-09] MED LIST changes: +ALBU8.5H INH; +ALPR0.5T3 PO; +CHLO125TA PO; +COZA50TA PO; +DIAZ5TAB PO; +LEVO250T12 PO; +MAG400TA PO; +POLYOPD OU; +POTA10CA32 PO; +PRED10TA2 PO
--- NOTE | 2019-09-09 14:39 | REPPI ---
CHEST, TWO VIEWS: Two views of the chest are performed and compared to a prior study of 08/30/2019. Moderate right pleural effusion has increased since the prior exam. There is also increased adjacent parenchymal opacity in the right lung base. Left lung remains clear. The heart is normal in size. There is calcification of the thoracic aorta. Mediastinal silhouette is otherwise unchanged. There are mild degenerative changes of the spine. Electronically Signed by Tad Salcedo MD 09/09/2019 05:56 P
== END ==
LOC: M PLAIMG 12:00
PROVIDERS: ATTEND Thoracic Surgery (Cardiothoracic Vascular Surgery)
DX: J90 Pleural effusion, not elsewhere classified (principal)

== ENCOUNTER → 2019-09-17 | Outpatient (CLI) | payer MEDICARE ==
[~2019-09-17] MED LIST changes: +ISOVUE-370 76% 100ML VIAL (Q9967) As Ordered ONE
== END ==
LOC: M RAD 09:18
PROVIDERS: ATTEND Internal Medicine Hematology & Oncology
DX: Z53.9 Procedure and treatment not carried out, unspecified reason (principal); C34.90 Malignant neoplasm of unspecified part of unspecified bronchus or lung

== ENCOUNTER → 2019-09-17 | Outpatient (CLI) | payer MEDICARE ==
[~2019-09-17] MED LIST changes: -ISOVUE-370 76% 100ML VIAL (Q9967) As Ordered ONE
--- NOTE | 2019-09-18 09:22 | REP ---
PET/CT: History: Staging lung cancer. Pleural fluid sampling positive for adenocarcinoma. Comparisons: Comparison chest CT study August 26, 2019. Comparison is also made with chest x-ray from August 25, [address] study from August 25, 2019. TECHNIQUE: 68 minutes following the intravenous injection of a 8.46 mCi dose of F-18 FDG, three-dimensional PET scintigraphy is acquired from the skull base to the proximal thighs. Triplanar noncontrast CT scanning is acquired through the same anatomic range for attenuation correction, and image registration with scan parameters optimized to minimize radiation exposure to the patient. PET scintigraphy and CT datasets were fused and displayed on a workstation with multiplanar and projection display capability. PET/CT Findings: There is extensive nodular hypermetabolic soft tissue involvement of the right pleural space from the apex to the base. Maximum standard uptake value in these multifocal pleural studded foci ranges up to 12.93 in the right apex. There is a large area of consolidation and mass effect in the right lower lobe distribution and some of this parenchyma is more avid in hypermetabolic uptake ranging up to 14.87 and 15.18. There is thickening of the adrenal glands bilaterally but these are not hypermetabolic. The left adrenal uptake is 1.95 and the right is 2.16. The head and neck soft tissues are unremarkable. There is no abnormal hypermetabolic uptake in the abdomen or pelvis. Impression: Extensive multifocal nodular pleural involvement with hypermetabolic uptake. There is collapse, consolidation, and mass effect and extensive hypermetabolic uptake in the right lower lobe distribution. No other hypermetabolic uptake is seen. The adrenal glands are thickened bilaterally but not hypermetabolic. Electronically Signed by Jackson Curran MD 09/18/2019 04:45 P
== END ==
LOC: M PLARAD 11:12
PROVIDERS: ATTEND Internal Medicine Hematology & Oncology
DX: C34.31 Malignant neoplasm of lower lobe, right bronchus or lung (principal)
CPT/HCPCS: 78815; A9552

== ENCOUNTER → 2019-09-18 | Outpatient (CLI) | payer MEDICARE ==
[~2019-09-18] MED LIST changes: +TAGR80TA PO
--- NOTE | 2019-09-22 12:18 | ECHO ---
DATE OF STUDY: 09/18/2019 DATE OF : 1940 AGE: 79 GENDER: Female HEIGHT: 65 inches WEIGHT: 140 pounds BODY SURFACE AREA: 1.7 meters squared OUTPATIENT REFERRING PHYSICIAN: Dr. Javad Reyes INDICATION: Lung cancer - pericardial effusion on CT scan. MEASUREMENTS 2-D Measurements: RV: 4.0 cm LV: 3.5 cm Septum: 1.0 cm Posterior wall: 1.0 cm Aortic root: 2.8 cm LA: 3.5 cm LVEF: 75% Doppler Measurements: AV: 1.2 m/s LVOT: 1.0 m/s LVOT diameter: 1.8 cm MV - E 62 A 110 EA ratio 0.8 Early mitral deceleration time: 246 ms E prime medial: 7.2 A prime medial: 9 E prime lateral: 8 Average E/E prime ratio: 12/PCWP: 16.9 mmHg PV: 0.8 m/s Pulmonary artery acceleration time: 77 ms RVSP: 53 mmHg IVC: 1.6 cm COMMENTS: Normal sinus rhythm without intraventricular conduction disturbance. M-mode and two-dimensional echocardiography was performed with pulsed, continuous wave, color flow and tissue Doppler studies. Technically challenging study, but diagnostically useful information was still obtained. Normal left ventricular size and wall thickness with hyperkinetic wall motion. Left atrial size upper limits of normal with grade one LV diastolic dysfunction and mildly elevated estimated mean left atrial pressure. At least mildly dilated right heart chambers with normal wall motion and Doppler evidence of moderately severe pulmonary hypertension. Normal IVC size, but reduced respiratory collapse in keeping with central venous pressure and at least upper limits of normal to slightly increased. Mild aortic valvular sclerosis without functional abnormality. Normal aortic diameters. Slight thickening of the mitral annulus, but normal leaflet thickness and excursion with no prolapse. Very mild insufficiency (physiologic). Normal appearing tricuspid valve with mild to moderate insufficiency. No apparent intracardiac mass or pericardial effusion.
== END ==
LOC: M CARPUL 09:11
PROVIDERS: ATTEND Internal Medicine Hematology & Oncology
DX: C34.90 Malignant neoplasm of unspecified part of unspecified bronchus or lung (principal); I31.3 Pericardial effusion (noninflammatory)

== ENCOUNTER → 2019-09-19 | Outpatient (CLI) | payer MEDICARE ==
--- NOTE | 2019-09-19 10:10 | REP ---
CHEST X-RAY: Two views. HISTORY: Post thoracentesis right-sided. COMPARISON STUDY: August 30, 2019. FINDINGS: There is improvement noted with some residual blunting of the right lateral pleural angle. There is no evidence of pneumothorax. Increased markings are seen in the right base unchanged. There is flattening of the hemidiaphragms on the lateral film. Borderline heart size. IMPRESSION: No pneumothorax seen. Improved right hydrothorax. Electronically Signed by Jackson Curran MD 09/19/2019 12:36 P
[2019-09-19 10:27] VITALS: BP 156/72
--- NOTE | 2019-09-19 12:42 | REP ---
Ultrasound-guided thoracentesis The procedure was performed by SINGH Castro, under the direct supervision of Dr. Curran. The risks and benefits of the procedure were explained to the patient and informed consent was obtained both verbally and written. Directly prior to the start of the procedure, a formal timeout was completed in the exam room. Pleural fluid on the right lung zone was localized using ultrasound guidance. The skin was prepped and draped in a sterile fashion. 4 of 1% lidocaine 10 mg/ml was used as a local anesthetic. Using ultrasound guidance, an 8-Tunisian multi side-hole catheter was inserted and advanced into the fluid. 590 ml of pink colored fluid was withdrawn and discarded. The patient tolerated the procedure well and there were no immediate complications. After the appropriate amount of monitored convalescence, the patient was discharged from the department. Reviewed by SINGH Kaplan 09/19/2019 12:30 P Electronically Signed by Jackson Curran MD 09/19/2019 12:34 P
== END ==
LOC: M IRPRO 08:07
PROVIDERS: ATTEND Internal Medicine Hematology & Oncology
DX: J90 Pleural effusion, not elsewhere classified (principal)

== ENCOUNTER → 2019-09-20 | Outpatient (CLI) | payer MEDICARE ==
[~2019-09-20] MED LIST changes: +ISOVUE-370 76% 100ML VIAL (Q9967) As Ordered ONE
--- NOTE | 2019-09-20 19:26 | REP ---
HISTORY: History of lung cancer. COMPARISON: 08/26/2019 and 08/25/2019. CONTRAST: 100 mL [id number] The right-sided thoracotomy tube has been removed. There is mediastinal adenopathy, status quo. There is a loculated right lower lobe pleural effusion, which has increased from the prior exam of 08/26/2019. There is a small pericardial effusion which has developed since the last exam. There is increased fluid in the superior pericardial recess. There is no change in the imaged upper abdomen or imaged osseous structures. Evaluation of the lung connors show lung field hyperexpansion, status quo. Asymmetric opacities are seen in the right lower lobe, essentially unchanged. There are no new abnormal opacities. IMPRESSION: 1. Abnormal fluid collections as described above. 2. Lung field hyperexpansion and chronic changes, status quo. 3. Adenopathy. 4. Upper abdomen changes, but stable from the prior exam. 5. Persistent patchy opacities in the right lower lobe. Pneumonia versus atelectasis versus chronic changes. Electronically Signed by Yoshi De La Torre DO 09/20/2019 07:32 P
== END ==
LOC: M RAD 16:36
PROVIDERS: ATTEND Internal Medicine Hematology & Oncology
DX: C34.91 Malignant neoplasm of unspecified part of right bronchus or lung (principal)
CPT/HCPCS: 71260; Q9967

== ENCOUNTER → 2019-09-25 | Outpatient (CLI) | payer MEDICARE ==
[~2019-09-25] MED LIST changes: -ISOVUE-370 76% 100ML VIAL (Q9967) As Ordered ONE; +PROHANCE 279.3MG/ML 15ML VIAL (A9576) As Ordered ONE
--- NOTE | 2019-09-25 19:17 | REPVR ---
PROCEDURE INFORMATION: Exam: MR Head Without and With Contrast Exam date and time: 09/25/2019 4:28 PM Age: 79 years old Clinical indication: Condition or disease; Cancer; Metastatic or secondary malignancy of brain; Primary cancer: Lung; Additional info: Nsclc, eval mets TECHNIQUE: Imaging protocol: MR of the head without and with intravenous contrast. Contrast material: PROHANCE; Contrast volume: 12 ml; Contrast route: IV COMPARISON: No relevant prior studies available. FINDINGS: No abnormal diffusion restriction to indicate acute CVA. Midline structures and cerebellar tonsillar position appear normal. Ventricles, cisterns and sulci are symmetrically prominent. No midline shift, or abnormal extra-axial fluid. No acute intracranial hemorrhage. Mild pattern of increased T2 and flair signal in supratentorial and ermelinda white matter. CP angle cisterns show normal CSF signal without effacement or mass. Homogeneously enhancing anterior inferior left temporal lobe mass with a dural base, measuring 8 x 7 by 7 mm, coronal post rosalio image 9 and axial post rosalio image 8, very likely a benign meningioma. No adjacent edema. Similar dural-based 6 x 5 by 6 mm lesion, left occipital, axial post rosalio image 11 and sagittal post rosalio image 9 Vascular flow voids are preserved in vertebro-basilar and carotid vessels. Major dural venous sinuses appear patent. Paranasal sinuses and mastoid air cells are normally aerated. Ocular globes and orbits are unremarkable. No soft tissue abnormality or asymmetry in the posterior nasopharynx. IMPRESSION: No acute intracranial process or evidence of intracranial metastatic disease. Likely benign meningiomas anterior inferior left temporal lobe lobe and left occipital lobe. No vasogenic edema or concerning features Mild chronic microangiopathic supratentorial and ermelinda white matter changes Electronically signed by: Declan Gil On 09/25/2019 19:16:36 PM
--- NOTE | 2019-09-25 19:52 | REP ---
MRI abdomen without and with IV gadolinium: History: Non-small cell lung carcinoma. Evaluate metastasis. Technique: Axial and coronal imaging planes are utilized. T1 and T2-weighted sequences include spin-echo, fast spin echo, diffusion weighted scans, in and [id number] imaging and dynamically acquired sequential post contrast images. Gadolinium enhancement dose is 12 mL of intravenous ProHance. Comparison is made with PET/CT study from September 17, [address] study from September 20, 2019. Findings: There is multifocal nodular pleural-based disease in the right lower pleural space. Posteriorly there is a loculated pleural fluid collection. These correspond with PET/CT findings of extensive metastatic pleural involvement. These show restricted diffusion. There is no mass lesion seen within the liver. There are several low T1, high T2 signal intensity nonenhancing cysts in the liver. The largest of these is in the right lobe measuring 1.8 cm. No focal splenic lesion is seen. There is thickening of the adrenal glands bilaterally. Both adrenal glands show signal drop out on [id number] images consistent with intralesional fat. This is compatible with benign adrenal adenoma. No pancreatic lesion is seen. No renal or splenic mass lesion. No retroperitoneal mass or adenopathy is observed. No evidence of upper abdominal adenopathy. 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 Multiple simple hepatic cysts. Small bilateral adrenal masses consistent with adenomas. The largest on the left measuring 2.2 cm in greatest diameter. No evidence of hepatic or upper abdominal metastatic disease. Electronically Signed by Jackson Curran MD 09/26/2019 09:30 A
== END ==
LOC: M RAD 16:18
PROVIDERS: ATTEND Internal Medicine Hematology & Oncology
DX: C34.91 Malignant neoplasm of unspecified part of right bronchus or lung (principal)
CPT/HCPCS: 70553; 74183; A9576

== ENCOUNTER → 2019-12-06 | Outpatient (CLI) | payer MEDICARE ==
[~2019-12-06] MED LIST changes: +AMLO5TAB6 PO; +DEXA4TA PO; +ERLO150T PO; +FOLI1TAB11 PO; +LOMO2.5T PO; +PROC5TA PO; -PROHANCE 279.3MG/ML 15ML VIAL (A9576) As Ordered ONE; +QUES4POW PO; +TAGR80TA
[2019-12-06 15:27] LABS: BASO % 0.3 % (0.0-1.0); EOS # 0.1 10^3/uL (0.0-0.5); EOS % 1.3 % (0.0-3.0); HEMOGLOBIN 12.4 g/dl (12.0-15.5); LYMPH # 1.2 10^3/uL (1.5-5.0); LYMPH % 16.9 % (24.0-44.0); MEAN CORPUSCULAR HEMOGLOBIN 29.3 pg (27.0-33.0); MEAN CORPUSCULAR HGB CONC 32.6 g/dl (32.0-36.5); MEAN CORPUSCULAR VOLUME 89.8 fl (80.0-96.0); MONO # 0.9 10^3/uL (0.0-0.8); MONO % 12.5 % (0.0-5.0); NEUTROPHILS # 4.7 10^3/uL (1.5-8.5); NEUTROPHILS % 68.9 % (36.0-66.0); PLATELET COUNT, AUTOMATED 204 10^3/uL (150-450); RED BLOOD COUNT 4.23 10^6/uL (4.00-5.40); WHITE BLOOD COUNT 6.8 10^3/uL (4.0-10.0)
[2019-12-06 16:04] LABS: ALBUMIN 3.1 GM/DL (3.2-5.2); ALT/SGPT 388 U/L (12-78); BILIRUBIN,TOTAL 0.7 MG/DL (0.2-1.0); BLOOD UREA NITROGEN 15 MG/DL (7-18); CALCIUM LEVEL 8.7 MG/DL (8.8-10.2); CARBON DIOXIDE LEVEL 28 MEQ/L (21-32); CHLORIDE LEVEL 101 MEQ/L (98-107); CREATININE FOR GFR 0.93 MG/DL (0.55-1.30); GLOMERULAR FILTRATION RATE > 60.0 (>39); GLUCOSE, FASTING 81 MG/DL (70-100); MAGNESIUM LEVEL 1.8 MG/DL (1.8-2.4); POTASSIUM SERUM 2.9 MEQ/L (3.5-5.1); SODIUM LEVEL 135 MEQ/L (136-145); TOTAL PROTEIN 6.5 GM/DL (6.4-8.2)
== END ==
LOC: M PLALAB 12:20
PROVIDERS: ATTEND Internal Medicine Hematology & Oncology
DX: C34.90 Malignant neoplasm of unspecified part of unspecified bronchus or lung (principal)

== ENCOUNTER → 2019-12-06 | Outpatient (CLI) | payer MEDICARE ==
--- NOTE | 2019-12-06 22:17 | ECGEPIP ---
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
--- NOTE | 2019-12-07 11:49 | MEDONCTEEN ---
Date/Time of Encounter Date of Encounter: December 07, 2019 Time of Encounter: 11:00 Telephone Encounter EKG reviewed QT and Qtc are withing normal limits Continue present oral chemotherapy treatment milieu MYKEL GARCIA MD December 07, 2019 11:49
== END ==
LOC: M EKG 13:52
PROVIDERS: ATTEND Internal Medicine Hematology & Oncology
DX: C34.90 Malignant neoplasm of unspecified part of unspecified bronchus or lung (principal)